=== PATIENT | female | born 1955 | race African-American/Black ===

== ENCOUNTER 2018-02-10 01:18 | Emergency (ER) | payer SELFPAY ==
[2018-02-10 01:18] VITALS: BP 141/85; PULSE 84; RESP 18; TEMP 36.5; O2SAT 99; BMI 34.4
--- NOTE | 2018-02-10 01:32 | CT_ITS ---
STUDY: CT ABDOMEN AND PELVIS WITHOUT CONTRAST REASON FOR EXAM: Female, 62 years old. Right flank pain RADIATION DOSAGE (If Supplied By Facility): CTDIvol = ( 15.28 ) mGy, DLP = ( 691.10 ) mGycm TECHNIQUE: Transaxial images were obtained from the dome of the diaphragm to the symphysis pubis without oral contrast, and without intravenous contrast. Sagittal and coronal images were reconstructed. Individualized dose optimization techniques were used for this CT. COMPARISON: None. FINDINGS: The visualized lung bases are unremarkable. The visualized portions of the heart are within normal limits. Normal liver. The gallbladder is contracted. Normal spleen. Normal pancreas. Normal bilateral adrenal glands. Multiple bilateral nonobstructing renal calculi, the largest on the left measuring 5 mm. Normal visualized stomach. Normal small intestine. There are multiple colonic diverticula consistent with diverticulosis. The appendix is visualized and appears normal. Normal abdominal aorta. Normal inferior vena cava. Normal retroperitoneum. Normal urinary bladder. Free pelvic fluid. Probable 16mm left ovary cyst. Normal abdominal wall. Normal osseous structures. CT/Abdomen/Pelvis without Cont IMPRESSION: No evidence of acute intestinal pathology or acute obstructive uropathy. Free pelvic fluid. Probable 16mm left ovary cyst. Bilateral nonobstructing renal calculi. Electronically Signed: Facundo Awad MD at 3:14 EDT Tel , Service support ,
[2018-02-10 02:04] LABS: Bacteria 0 SEEN /hpf (None Seen); Mucous, Urine 0 SEEN /hpf (<or=2+); White Blood Cells 0 SEEN /hpf (0-5)
[2018-02-10 02:06] LABS: Color, Urine Yellow (Yellow); Glucose, Dipstick Normal (Normal); Ketone-Dipstick Negative (Negative); Leukocyte Esterase-Dipstick 25 /ul (Negative); Nitrite-Dipstick Negative (Negative); Occult Blood-Urine 10 /ul (Negative); Protein-Dipstick Negative (Negative); Specific Gravity, Urine 1.015 (1.002-1.030); Urine Bilirubin Dipstick Negative (Negative); Urine Clarity Clear (Clear); Urine Urobilinogen Normal (Normal)
[2018-02-10] MEDS: Ketorolac 30 MG/ML Syringe IV (02:06)
[2018-02-10] MEDS: 0.9% Normal Saline 1,000 ML 250 ML IV (02:06)
[2018-02-10 02:20] LABS: Red Blood Cells-Urine 0-5 SEEN /hpf (0-5); Squamous Epithelial Cells - UA 0-5 SEEN /hpf (5-10)
--- NOTE | 2018-02-10 03:40 | ED.DCSUM_ITS ---
- ER Visit Summary Date of Service: 02/10/18 Chief Complaint: Right flank pain History of Present Illness: The patient is a [address] Cooper. She reports that 830 this evening she was standing in the kitchen had the abrupt onset of a right flank pain. She is taking an aching pain is 10 out of 10 severity. Is worsened by bending or stooping. She is used a heating pad without relief. She denies having had anything like this previously. However, she does have known kidney stones. She denies any radiation to her legs. No numbness or weakness in her legs. No problems with her bowels or bladder. No groin numbness. She denies any recent trauma. No fall, MVA, or change in activity. Her review of systems is negative. Physical Examination: Vitals: Stable. Afebrile. General: Well-nourished and well-developed. Head: Normocephalic atraumatic. Neck: Supple, no lymphadenopathy. No JVD. Nontender. Cardiovascular: Regular rate and rhythm. No murmurs. Respiratory: No respiratory distress. Clear to auscultation bilaterally. Abdominal: Soft, nontender, nondistended, normal bowel sounds. No guarding, rebound, or peritoneal signs. Back: Mild right CVA tenderness to palpation. No vertebral tenderness. Extremities: Nontender, no edema. Skin: Normal color, no rash. Neurologic: Alert and oriented ?3. Cranial nerves II through XII are intact. Normal strength and sensation. Psych: Normal affect. Test Results: Urinalysis is negative. CT flank shows multiple bilateral intrarenal stones and a 16 mm left ovarian cyst. There are no ureteral stones. Emergency Department Course and Treatment: Patient was treated with Toradol IV and is resting comfortably. Treatment Plan: An OARRS report was obtained and it was negative. She will be discharged with [place] and instructed to follow-up with Dr. Cooper in 3-5 days if not improving. Return to the emergency department for any worsening symptoms. Disposition: To home in improved and stable condition. Impression: 1. Back pain, acute. This note was generated with Sensicast Systemsation software. It may contain incorrect words, spelling, and punctuation that were not noted in review of the chart prior to signing ED Disposition - Plan for ED Patient: Disposition: Home or Assisted Living Chief Complaint: Back Instructions: ED Spasm Back No Trauma Prescriptions: Hydrocodone/Acetaminophen [[place] 5-325 Tablet] 1 - 2 each PO 4X/DAY PRN PRN 5 Days #20 tablet PRN Reason: Pain Referrals: Tatiana Cooper MD [Primary Care Provider] - 3-5 Days if not improving
[2018-02-10] MEDS: HYDROcodone Bitartrate/Apap 5/325 Tablet PO (04:13)
[2018-02-10 04:15] VITALS: BP 130/78; PULSE 76; RESP 14; O2SAT 98
== END 2018-02-10 04:16 | disposition home or self-care (01) ==
PROVIDERS: Emergency Provider Emergency Medicine; Family Provider Internal Medicine; PCP Internal Medicine
DX: M54.9 Dorsalgia, unspecified (principal); N83.202 Unspecified ovarian cyst, left side; Z87.442 Personal history of urinary calculi
CPT/HCPCS: 74176; 81001; 96361; 96374; 99283; J7030; A4216

== ENCOUNTER 2018-10-23 16:25 | Emergency (ER) | payer BC, SELFPAY ==
[2018-10-23 16:26] VITALS: BP 165/80; PULSE 61; RESP 15; TEMP 36.7; O2SAT 99; BMI 34.9
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
[2018-10-23 17:02] VITALS: BP 155/75; PULSE 68; RESP 18; O2SAT 99
== END 2018-10-23 17:02 | disposition home or self-care (01) ==
PROVIDERS: Emergency Provider Emergency Medicine; Family Provider Internal Medicine; PCP Internal Medicine
DX: S16.1XXA Strain of muscle, fascia and tendon at neck level, initial encounter (principal); V43.52XA Car driver injured in collision with other type car in traffic accident, initial encounter; Y93.9 Activity, unspecified; Y92.410 Unspecified street and highway as the place of occurrence of the external cause; Y99.9 Unspecified external cause status; G44.209 Tension-type headache, unspecified, not intractable; E66.9 Obesity, unspecified
CPT/HCPCS: 99282

== ENCOUNTER 2018-11-05 12:04 | Emergency (ER) | payer BC, SELFPAY ==
[2018-11-05 12:09] VITALS: BP 141/89; PULSE 73; RESP 14; TEMP 36.6; O2SAT 96; BMI 37.2
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
--- NOTE | 2018-11-05 12:25 | ED.DEP ---
ED Disposition - Plan for ED Patient: Disposition: Home or Assisted Living Chief Complaint: Hypertension Instructions: ED Hypertension Poss Referrals: Tatiana Cooper MD [Primary Care Provider] - 1-2 Weeks Additional Instructions: Log your blood pressure twice daily and follow-up your primary care physician in 1-2 weeks to go over the readings and decide if you need to be started on any blood pressure medication. At this time we do not.
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
[2018-11-05 12:45] VITALS: BP 147/77; PULSE 71; RESP 20
--- OUTSIDE RECORDS SUMMARY | 2019-01-07 11:40 | XMS RPT_ITS ---
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 [facility] REPOSITORY [facility] Imaging Services [address] [place] [address] Abdomen/Pelvis without Cont MR#: [id number] Acct: [id number] Name: KAREN MCGRAW Rep #: [id number] : 1955 F 62 From: Facundo Awad MD PCP: Gurpreet Villalobos MD Status: REG ER Study: Abdomen/Pelvis without Cont Date of Exam: 02/10/18 Exam# [id number] Ordering Dr: Jordan Bond MD STUDY: CT [...] CC: Gurpreet Villalobos MD; Jordan Bond MD Agricultural Agent: Signed ALLERGIES ALLERGIES DATE TYPE / CODE NAME / CODE REACTION SEVERITY SOURCE 11/05/2018 Drug trazodone/[id number] Other Unknown [facility] Allergy/416 4610(RXNORM) [facility] 962481(SNOM Repository ED CT) 05/31/2016 DRUG TRAZODONE ITCHING [facility] INGREDI/419 Other [place] 832367(SNOM Repository ED CT) 05/31/2016 [facility] [place] 284777(SNOM Repository ED CT) ENCOUNTERS ENCOUNTERS ADMIT/DISCHARGE ACCOUNT NUMBER ADMITTING ENCOUNTER LOCATION SOURCE CLASS 11/10/2018/11/10/19 [id number] Ambulatory [address] Repository 11/07/2018/11/10/19 [id number] Ambulatory [address] Repository 11/06/2018 [id number] Ambulatory [facility] ding:OT Repository 11/06/2018/11/06/19 [id number] Ambulatory [address] Repository 11/05/2018/11/05/19 [id number] Ambulatory [address] Repository 11/05/2018/11/06/19 [id number] Ambulatory [address] Repository 11/05/2018/11/05/19 [id number] Emergency [place] [facility] ding:ED Repository 11/04/2018/11/05/19 [id number] Ambulatory [address] Main [place] Repository 11/03/2018/11/05/19 [id number] Ambulatory [address] [place] Repository 10/31/2018 [id number] Ambulatory [facility] Other [place] Repository 10/29/2018/10/29/19 [id number] Ambulatory [address] [place] Repository 10/29/2018/10/30/19 [id number] Ambulatory [address] [place] Repository 10/23/2018/10/23/19 [id number] Emergency [place] [facility] ding:ED Repository 10/22/2018/10/22/19 [id number] Ambulatory [address] [place] Repository 10/22/2018/10/23/19 [id number] Ambulatory [address] [place] Repository 10/22/2018/10/23/19 [id number] Ambulatory [address] [place] Repository 10/22/2018/10/22/19 [id number] Ambulatory [address] [place] Repository 10/15/2018/10/15/19 [id number] Ambulatory [address] [place] Repository 10/10/2018/10/12/20 [id number] Ambulatory [address] [place] Repository 10/01/2018/10/03/20 [id number] Ambulatory [address] [place] Repository 09/30/2018/10/01/20 [id number] Ambulatory [address] [place] Repository 09/18/2018/09/19/20 [id number] Ambulatory [address] [place] Repository 07/07/2018 [id number] Ambulatory [facility] Repository 04/12/2018/04/14/20 [id number] Ambulatory [address] [place] Repository 03/27/2018 [id number] Ambulatory [facility] [place] Repository 02/13/2018/02/15/20 [id number] Ambulatory [address] [place] Repository 02/10/2018/02/11/20 [id number] Emergency [place] [facility] ding:ED Repository PAYERS PAYERS ENCOUNTER GUARANTOR PAYER SUBSCRIBER SOURCE 11/06/2018 KAREN S Primary KAREN S [place] [id number] Insurance:ANTHEMPolicy CANTLEBERRYDOB: Community [id number] [id number] Repository [address]Ekh: (330) Date:2667-54-76X[phone] () [id number], [place] [address]HQ: 11/06/2018 Secondary Insurance:SELF NOT GIVENUNK [place] PAY INSURANCEPolicy Community Number: Effective Hospital Date:2018-10-29 Repository 11/05/2018 KAREN S Primary KAREN S [place] [id number] Insurance:ANTHEMPolicy CANTLEBERRYDOB: Community RICHIE [place]: [id number] [id number] Repository [address]Uza: (330) Date:5024-55-04[place] [phone] () [id number], [place] [address]EC: 11/05/2018 Secondary Insurance:SELF NOT GIVENUNK [place] PAY INSURANCEPolicy Community Number: Effective Hospital Date:2018-11-05 Repository 10/23/2018 KAREN S Primary KAREN S [place] [id number] Insurance:ANTHEMPolicy CANTLEBERRYDOB: Community RICHIE Number: [id number] [id number] Repository [address]Gii: (330) Date:9956-10-54YU [phone] () [id number], [place] [address]TY: 10/23/2018 Secondary Insurance:SELF NOT GIVENUNK [place] PAY INSURANCEPolicy Community Number: Effective Hospital Date:2018-10-23 Repository 07/07/2018 [facility]:Workers [place]DOB: System CompensationPolicy [id number] Repository Richie Number: Effective Date: [place], [place] [address]Lrh: () 02/10/2018 KAREN Woodall Primary Insurance:SELF NOT GIVENYAMILA BRODERICKBERRY[address] [place] [address] Number: Effective [place], [place] Date:2018-02-10 [facility] [address]Jxt: ()
== END 2018-11-05 12:46 | disposition home or self-care (01) ==
LOC: ED 12:37
PROVIDERS: Emergency Provider Emergency Medicine; Family Provider Internal Medicine; PCP Internal Medicine
DX: R03.0 Elevated blood-pressure reading, without diagnosis of hypertension (principal)
CPT/HCPCS: 99284

== ENCOUNTER 2018-11-06 14:00 | Outpatient (RCR) | payer BC, SELFPAY ==
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
--- NOTE | 2018-11-11 08:05 | HP.OTFCE_ITS ---
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 pressure which is increased with all basic movements and physical exertion tasks she should avoid physical and work-based tasks until this issue is resolved. Overhead Lift: Due to blood pressure being unstable and high for most of session it is inappropriate to continue functional capacity evaluation as it increases further health related and safety concerns. An accurate understanding of Sarbjit physical ability was unable to be determined due to her uncontrolled blood pressure and further follow up is needed with her physician to resolve issues. Based on symptoms of increased vertigo and blood pressure which is increased with all basic movements and physical exertion tasks she should avoid physical and work-based tasks until this issue is resolved. Carrying: Due to blood pressure being unstable and high for most of session it i s inappropriate to continue functional capacity evaluation as it increases further health related and safety concerns. An accurate understanding of Sarbjit physical ability was unable to be determined due to her uncontrolled blood pressure and further follow up is needed with her physician to resolve issues. Based on symptoms of increased vertigo and blood pressure which is increased with all basic movements and physical exertion tasks she should avoid physical and work-based tasks until this issue is resolved. Comments: Upon completion of day one Pt. was transferred via squad to [facility] emergency room due to blood pressure. OT has rescheduled [facility] tomorrow to finish assessment but needs further medical examination prior to continuing. She was discharged with no precautions and to monitor symptoms. After walking 50 feet to front lobby at completion of day 2 her blood pressure was 186/106 HR 79. She was asked by therapist to rest prior to leaving. She previous went to emergency room for this type of blood pressure and she noted it was resolved by time of arrival and was discharged. She is working with primary care physician to resolve issue.
--- NOTE | 2018-11-11 08:16 | HP.OTFCE.D ---
FCE D/C Summary - Discharge JOSIANE PASTRANA was seen for a one time visit for an FCE on 11/05/18 and is discharged.
--- OUTSIDE RECORDS SUMMARY | 2019-01-07 05:50 | XMS RPT_ITS ---
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 waveforms. Left ovary: 3.7 x 2.9 x 2.3 cm Anechoic avascular 1.9 x 1.4 x 1.4 cm cyst (previously 1.8 x 1.6 x 1.6 cm). Septated cyst versus 2 adjacent cysts measures 3 x 2.2 x 1.8 cm (previously approximately 2.3 x 1.3 x 2.4 cm. Arterial and venous flow is present throughout the left ovary on color Doppler imaging with normal spectral waveforms. Pelvis free fluid: None. IMPRESSION: Bilateral ovarian cysts appear similar since 2014. No ovarian torsion. Subcentimeter uterine fibroid. Bone Drier: DANG Transcribe Date/Time: Oct 23 2018 3:40P Dictated by : AYLA NAM MD This examination was interpreted and the report reviewed and electronically signed by: AYLA NAM MD on Oct 23 2018 3:48PM EST [id number] CREATININE Collected: 10/15/2018 Status: F Source: DERIDDER 1:00 PM [facility] REPOSITORY TYPE CODE TESTS RESULT OUT OF REFERENCE UNITS RANGE LAB CRET 0.58-0.96 mg/dL Creatinine 0.66 LAB GFRAA eGFR- >60 Amer. LAB GFRNAA . eGFR-All Other Races >60 Result Comment: eGFR (Estimated GFR) Units of measure: mL/min/1.73 meters squared eGFR is derived from the reexpressed MDRD Study equation using the following parameters: serum creatinine, age, gender and race. The creatinine assay has been calibrated to be traceable to IDMS. An eGFR <60 mL/min/1.73m2 for >3 months is consistent with chronic kidney disease. Refer to KDOQI guidelines for clinical interpretation. In patients with unstable renal function, e.g. those with acute kidney injury, the eGFR may not accurately reflect actual GFR. Performed By: #### CRET1 #### [facility] [address] [address] PROGRESS Observed: 10/10/2018 Status: COMPLETED Source: DERIDDER 6:53 PM [facility] REPOSITORY HNO ID: [id number] Author: Janeen Whitten) [place] Service: (none) Author Type: Nurse Practitioner Type: Progress Notes Filed: 10/10/2018 8:34 PM Note Text: Subjective The history is provided by the patient. No instrument technician was used. ROWDY Mcgraw is a 63 year old female who presents today for CC of cough nasal drainage, sinus congestion. This started a week ago. She is also having yellow mucous. She denies fever. She has tried tylenol and aleve and nasal saline with short term relief. Worse when lying down at night. States feels dizzines with sinus. She denies any slurred speech, facial drooping, numbness or tingling in arms. BP 116/64 Pulse 70 Temp 36.9 ?C (98.4 ?F) (Left Tympanic) Resp 16 Wt 88.7 kg (195 lb 9.6 oz) SpO2 97% BMI 36.96 kg/m? PAST MEDICAL HISTORY Diagnosis Date - Alcoholism (HCC) - Depression - Hepatitis C I have confirmed and edited as necessary, the [facility] Review of Systems Constitutional: Negative for chills and fever. HENT: Positive for congestion, ear pain (pressure) and sinus pain. Negative for sore throat. Post nasal drainage Respiratory: Positive for cough. Musculoskeletal: Negative for myalgias. Neurological: Positive for dizziness and headaches (sinus). Objective Physical Exam Constitutional: She is well-developed, well-nourished, and in no distress. HENT: Head: Normocephalic and atraumatic. Right Ear: External ear and ear canal normal. Tympanic membrane is injected and bulging. Tympanic membrane is not erythematous and not retracted. A middle ear effusion is present. Left Ear: Ear canal normal. Tympanic membrane is injected and bulging. Tympanic membrane is not erythematous and not retracted. A middle ear effusion is present. Nose: Mucosal edema and rhinorrhea present. Right sinus exhibits maxillary sinus tenderness and frontal sinus tenderness. Left sinus exhibits maxillary sinus tenderness and frontal sinus tenderness. Mouth/Throat: Uvula is midline, oropharynx is clear and moist and mucous membranes are normal. No posterior oropharyngeal edema or posterior oropharyngeal erythema. Cardiovascular: Normal rate and regular rhythm. Pulmonary/Chest: Effort normal and breath sounds normal. She has no decreased breath sounds. She has no wheezes. She has no rhonchi. She has no rales. Lymphadenopathy: Head (right side): No submental, no submandibular and no tonsillar adenopathy present. Head (left side): No submental, no submandibular and no tonsillar adenopathy present. She has no cervical adenopathy. Neurological: She is alert. She has intact cranial nerves. No cranial nerve deficit. Skin: Skin is warm and dry. Psychiatric: Affect normal. Nursing note and vitals reviewed. ASSESSMENT/PLAN: 1. URI, acute - ICD9: 465.9, ICD10: J06.9 (primary diagnosis) - Discussed viral etiology and rationale for treatment. Rest, increase water intake Motrin or Tylenol as needed for fever or pain. Salt water gargles, chloraseptic spray or lozenges as needed for sore throat. Nasal spray as needed Cool mist humidifier at night A cold normally lasts 7-10 days. If your symptoms are lasting longer, develop fever, or worsening by that time instead of improving then return to clinic or follow up with PCP for re-evaluation. 2. Non-recurrent acute serous otitis media of left ear - ICD9: 381.01, ICD10: H65.02 - Will begin treatment with Amoxicillin for 10 days - Supportive care with plenty of fluids, rest, and analgesia prn. Sudafed 30 mg twice a day for 3-5 days Flonase 1 spray each nostril two times a day. GO TO THE ER IF: 1. You have a severe headache or pain around the ear. 2. You notice swelling around the ear. 3. You have a seizure (convulsion), twitching of the facial muscles, or passes out. 4. You are dizzy, have a stiff neck, or cannot walk or talk normally. * Seek medical care immediately, call 911, go to ER if you have chest pain, difficulty breathing, shortness of breath, inability to swallow. Diagnosis and treatment plan were discussed and questions were answered to the patient's satisfaction. Pt acknowledged understanding of concepts and follow up plan. Specific signs and symptoms that would indicate the need for higher level of care were discussed in detail warranting prompt ER evaluation. KIMBERLY Holman Observed: 10/10/2018 Status: COMPLETED Source: DERIDDER 6:30 PM [facility] REPOSITORY Office Visit (WSTR) KAREN MCGRAW ([id number]) 1955 F Date Time Provider Department 10/10/18 6:30 PM JANEEN LAUREN (EDITH) WSTR During your visit today, we recorded the following information about you: Temperature Pulse Respiration Blood pressure 98.4 degrees 70/minute 16/minute 116/64 Weight 88.7 kg Janeen Lauren APRN.CNP 10/10/2018 8:34 PM Signed Subjective The history is provided by the patient. No instrument technician was used. ROWDY Mcgraw is a 63 year old female who presents today for CC of cough nasal drainage, sinus congestion. This started a week ago. She is also having yellow mucous. She denies fever. She has tried tylenol and aleve and nasal saline with short term relief. Worse when lying down at night. States feels dizzines with sinus. She denies any slurred speech, facial drooping, numbness or tingling in arms. BP 116/64 Pulse 70 Temp 36.9 ?C (98.4 ?F) (Left Tympanic) Resp 16 Wt 88.7 kg (195 lb 9.6 oz) SpO2 97% BMI 36.96 kg/m? PAST MEDICAL HISTORY Diagnosis Date - Alcoholism (HCC) - Depression - Hepatitis C I have confirmed and edited as necessary, the [facility] Review of Systems Constitutional: Negative for chills and fever. HENT: Positive for congestion, ear pain (pressure) and sinus pain. Negative for sore throat. Post nasal drainage Respiratory: Positive for cough. Musculoskeletal: Negative for myalgias. Neurological: Positive for dizziness and headaches (sinus). Objective Physical Exam Constitutional: She is well-developed, well-nourished, and in no distress. HENT: Head: Normocephalic and atraumatic. Right Ear: External ear and ear canal normal. Tympanic membrane is injected and bulging. Tympanic membrane is not erythematous and not retracted. A middle ear effusion is present. Left Ear: Ear canal normal. Tympanic membrane is injected and bulging. Tympanic membrane is not erythematous and not retracted. A middle ear effusion is present. Nose: Mucosal edema and rhinorrhea present. Right sinus exhibits maxillary sinus tenderness and frontal sinus tenderness. Left sinus exhibits maxillary sinus tenderness and frontal sinus tenderness. Mouth/Throat: Uvula is midline, oropharynx is clear and moist and mucous membranes are normal. No posterior oropharyngeal edema or posterior oropharyngeal erythema. Cardiovascular: Normal rate and regular rhythm. Pulmonary/Chest: Effort normal and breath sounds normal. She has no decreased breath sounds. She has no wheezes. She has no rhonchi. She has no rales. Lymphadenopathy: Head (right side): No submental, no submandibular and no tonsillar adenopathy present. Head (left side): No submental, no submandibular and no tonsillar adenopathy present. She has no cervical adenopathy. Neurological: She is alert. She has intact cranial nerves. No cranial nerve deficit. Skin: Skin is warm and dry. Psychiatric: Affect normal. Nursing note and vitals reviewed. ASSESSMENT/PLAN: 1. URI, acute - ICD9: 465.9, ICD10: J06.9 (primary diagnosis) - Discussed viral etiology and rationale for treatment. Rest, increase water intake Motrin or Tylenol as needed for fever or pain. Salt water gargles, chloraseptic spray or lozenges as needed for sore throat. Nasal spray as needed Cool mist humidifier at night A cold normally lasts 7-10 days. If your symptoms are lasting longer, develop fever, or worsening by that time instead of improving then return to clinic or follow up with PCP for re-evaluation. 2. Non-recurrent acute serous otitis media of left ear - ICD9: 381.01, ICD10: H65.02 - Will begin treatment with Amoxicillin for 10 days - Supportive care with plenty of fluids, rest, and analgesia prn. Sudafed 30 mg twice a day for 3-5 days Flonase 1 spray each nostril two times a day. GO TO THE ER IF: 1. You have a severe headache or pain around the ear. 2. You notice swelling around the ear. 3. You have a seizure (convulsion), twitching of the facial muscles, or passes out. 4. You are dizzy, have a stiff neck, or cannot walk or talk normally. * Seek medical care immediately, call 911, go to ER if you have chest pain, difficulty breathing, shortness of breath, inability to swallow. Diagnosis and treatment plan were discussed and questions were answered to the patient's satisfaction. Pt acknowledged understanding of concepts and follow up plan. Specific signs and symptoms that would indicate the need for higher level of care were discussed in detail warranting prompt ER evaluation. Janeen Lauren APRN.EDITH Lauren APRN.CNP 10/10/2018 7:04 PM Addendum ASSESSMENT/PLAN: 1. URI, acute - ICD9: 465.9, ICD10: J06.9 (primary diagnosis) - Discussed viral etiology and rationale for treatment. Rest, increase water intake Motrin or Tylenol as needed for fever or pain. Salt water gargles, chloraseptic spray or lozenges as needed for sore throat. Nasal spray as needed Cool mist humidifier at night A cold normally lasts 7-10 days. If your symptoms are lasting longer, develop fever, or worsening by that time instead of improving then return to clinic or follow up with PCP for re-evaluation. 2. Non-recurrent acute serous otitis media of left ear - ICD9: 381.01, ICD10: H65.02 - Will begin treatment with Amoxicillin for 10 days - Supportive care with plenty of fluids, rest, and analgesia prn. Sudafed 30 mg twice a day for 3-5 days Flonase 1 spray each nostril two times a day. GO TO THE ER IF: 1. You have a severe headache or pain around the ear. 2. You notice swelling around the ear. 3. You have a seizure (convulsion), twitching of the facial muscles, or passes out. 4. You are dizzy, have a stiff neck, or cannot walk or talk normally. * Seek medical care immediately, call 911, go to ER if you have chest pain, difficulty breathing, shortness of breath, inability to swallow. Referring Provider: SELF [[id number]] Allergies As of Date: 10/10/2018 Noted Allergy Reaction TRAZODONE 05/31/2016 9 - Itching Comments: Severe headache Date Reviewed: 10/10/2018 Reviewed by: [facility]en [facility] [place] - Fully Assessed Reason for Visit: Sinusitis [127] Primary Visit Diagnosis:URI, acute [J06.9] Other Visit Diagnosis:Non-recurrent acute serous otitis media of left ear [H65.02] Order(s):amoxicillin (AMOXIL) 875 mg tabletTake 1 tablet by mouth twice daily for 10 days.Disp: 20 tabletRfl: 0 fluticasone (FLONASE) 50 mcg/actuation nasal sprayUse 2 Sprays in each nostril once daily. Rinse mouth after use.Disp: 1 BottleRfl: 0 Prescriptions as of 10/10/2018 Sig: VITAMIN E 400 UNIT CAPSULE Take 400 Units by mouth once * ASCORBIC ACID (VITAMIN C) 1,0* Take 2,000 mg by mouth twice * COLLAGEN PLUS VITAMIN C ORAL Take by mouth. BIOTIN ORAL Take by mouth. VITAMIN D-3 ORAL Take by mouth. CHOLECALCIFEROL (VITAMIN D3) * Take 1,000 Units by mouth onc* VITAMIN B-12 ORAL Take by mouth. MELOXICAM 7.5 MG TABLET Take 1 tablet by mouth once d* AMOXICILLIN 875 MG TABLET Take 1 tablet by mouth twice * FLUTICASONE 50 MCG/ACTUATION * Use 2 Sprays in each nostril * HYDROCORTISONE 1 % TOPICAL CR* Apply 1 application to affect* Problem List As Of Date 10/10/2018 Noted Resolved Unspecified viral hepatitis C without hepatic c*INVALID FOR* More... Lipoma of Unspecified Site [D17.9] INVALID FOR* Dizziness [R42] INVALID FOR* More... Obesity (BMI 30-39.9) [E66.9] INVALID FOR* More... SUMMARY [V999.95] INVALID FOR* More... Other instructions from your clinician: ASSESSMENT/PLAN: 1. URI, acute - ICD9: 465.9, ICD10: J06.9 (primary diagnosis) - Discussed viral etiology and rationale for treatment. Rest, increase water intake Motrin or Tylenol as needed for fever or pain. Salt water gargles, chloraseptic spray or lozenges as needed for sore throat. Nasal spray as needed Cool mist humidifier at night A cold normally lasts 7-10 days. If your symptoms are lasting longer, develop fever, or worsening by that time instead of improving then return to clinic or follow up with PCP for re-evaluation. 2. Non-recurrent acute serous otitis media of left ear - ICD9: 381.01, ICD10: H65.02 - Will begin treatment with Amoxicillin for 10 days - Supportive care with plenty of fluids, rest, and analgesia prn. Sudafed 30 mg twice a day for 3-5 days Flonase 1 spray each nostril two times a day. GO TO THE ER IF: 1. You have a severe headache or pain around the ear. 2. You notice swelling around the ear. 3. You have a seizure (convulsion), twitching of the facial muscles, or passes out. 4. You are dizzy, have a stiff neck, or cannot walk or talk normally. * Seek medical care immediately, call 911, go to ER if you have chest pain, difficulty breathing, shortness of breath, inability to swallow. Prescriptions ordered this encounter Disp Refills Start End AMOXICILLIN 875 MG TABLET 20 t* 0 10/10/2018 10/20/2018 Route: ORAL Sig: Take 1 tablet by mouth twice daily for 10 days. FLUTICASONE 50 MCG/ACTUATION NASAL S* 1 Denny* 0 10/10/2018 Route: EACH NOSTRIL Sig: Use 2 Sprays in each nostril once daily. Rinse mouth after use. Medications Discontinued During This Encounter methylPREDNISolone (MEDROL DOSE-PACK* 1 Pa* 0 09/18/2018 10/10/2018 Sig: As Instructed per package Patient not taking: Reported on 10/10/2018 Disc: Course of therapy completed Encounter Status:Closed by JANEEN LAUREN CNP on 10/10/18 PROGRESS Observed: 09/30/2018 Status: COMPLETED Source: DERIDDER 3:51 PM [facility] [place] REPOSITORY O ID: [id number] Author: Suly (Edith) Older Service: (none) Author Type: Nurse Practitioner Type: Progress Notes Filed: 09/30/2018 4:26 PM Note Text: CC: Patient presents with: left calf pain: x 24 hours HPI Karen Mcgraw is a 63 year old female who presents today for left calf pain since yesterday. Initially stated it was localized to left calf but also reports starts in the left buttock and radiates down to her foot. Constant burning, throbbing and pulling pain. Rated 6 to 7 out of 10. Aggravated by walking and standing. Possible calf swelling but unsure. Also reports left treat toe tingling/stabbing pain, having trouble walking because of this. No chest pain, SOB, heart palpitations. No fever, chills. No recent injury or falling. No low back pain. Was evaluated last week for left groin pain, see office note in EPIC. Still having left groin pain but does not feel that this is related. REVIEW OF SYSTEMS See HPI PAST MEDICAL HISTORY Diagnosis Date - Alcoholism (HCC) - Depression - Hepatitis C PAST SURGICAL HISTORY Procedure Laterality Date - COLONOSCOP W/ OR W/O [facility] SPEC 01/11/2014 Colonoscopy - LIVER BIOPSY in and 2002 - REMOVAL ADENOIDS,PRIMARY,<12 Y/O Adenoidectomy - REMOVAL OF TONSILS,<12 Y/O Tonsillectomy ALLERGIES Trazodone MEDICATIONS alpha tocopheryl acetate (VITAMIN E) 400 unit capsule Take 400 Units by mouth once daily. Ascorbic Acid (VITAMIN C) 1,000 mg tablet Take 2,000 mg by mouth twice daily. ascorbic acid/collagen hydr (COLLAGEN PLUS VITAMIN C ORAL) Take by mouth. BIOTIN ORAL Take by mouth. CALCIUM CARBONATE/VITAMIN D3 (VITAMIN D-3 ORAL) Take by mouth. cholecalciferol (VITAMIN D) 1,000 unit tab tablet Take 1,000 Units by mouth once daily. CYANOCOBALAMIN, VITAMIN B-12, (VITAMIN B-12 ORAL) Take by mouth. hydrocortisone (ANTI-ITCH, HC,) 1 % cream Apply 1 application to affected area twice daily. meloxicam (MOBIC) 7.5 mg tablet Take 1 tablet by mouth once daily. for pain. Take with food. methylPREDNISolone (MEDROL DOSE-PACK) 4 mg Dose-Pack As Instructed per package FAMILY HISTORY Problem Relation Age of Onset - Cancer Mother ovarian - Heart Mother cad - Cancer Sister ovarian - Psychiatry Sister bipolar - Psychiatry Brother bipolar Social History Substance Use Topics - Smoking status: Former Smoker - Smokeless tobacco: Never Used - Alcohol use No PHYSICAL EXAM BP 150/90 Pulse 80 Temp 37 ?C (98.6 ?F) (Temporal Artery) Resp 16 Wt 85.7 kg (189 lb) SpO2 96% BMI 35.71 kg/m? General Appearance: well appearing, in no acute distress, alert Back: No pain to palpation, Full and painless ROM including flexion, extension, lateral side bending and rotation, Reflexes 2+ and symmetric. Muscle strength 5/5 bilaterally. Lungs: lungs clear to auscultation. No wheezing, rhonchi, rales Heart: RRR without murmur, gallop, or rubs. No ectopy Lower Extremities: entire left lower leg tender with palpation. Left calf measures 15.75 inches and right calf measures 15 inches. No obvious edema. No deformities, skin discoloration, clubbing or cyanosis. Good capillary refill. Pulses: 2+, No cords. Modified Wells Rule for DVT (1pt each) - active cancer (tx or palliation in last 6mo)= 0 - paralysis, paresis or recent leg casting= 0 - bedridden >3D/major surgery w/in 4 wks= 0 - localized tenderness along deep venous system= 1 - entire ext swollen= 0 - unilateral calf swelling >3cm below Tibial tuberosity= 0 - unilateral pitting edema= 0 - prominent non-varicose collateral superficial veins= 0 Score -2 if alt dx as likely as DVT= -2 Score Total: -1 Pretest probabilty: High >= 3, Intermediate 1-2, Low 0 ASSESSMENT/PLAN: 1. Pain of left calf - ICD9: 729.5, ICD10: M79.662 (primary diagnosis) Differential diagnoses includes sciatica and DVT. Discussed with patient - Check stat US LEG VEIN DVT [facility] - Follow-up pending results of work-up 2. Edema of left lower extremity - ICD9: 782.3, ICD10: R60.0 As above - US LEG VEIN DVT [facility] Prescription instructions reviewed with patient as applicable. Potential red flag symptoms discussed with the patient. Reviewed appropriate action plan to take if red flag symptoms occur. Patient agreeable to treatment plan. Suly Balderas APRN.CNP CNOV Observed: 09/30/2018 Status: COMPLETED Source: DERIDDER 3:40 PM [facility] REPOSITORY Office Visit (INTMWS) KAREN MCGRAW ([id number]) 1955 F Date Time Provider Department 09/30/18 3:40 PM SULY BALDERAS (EDITH) INTMWS During your visit today, we recorded the following information about you: Temperature Pulse Respiration Blood pressure 98.6 degrees 80/minute 16/minute 150/90 Weight 85.7 kg Suly Balderas APRN.CNP 09/30/2018 4:26 PM Signed CC: Patient presents with: left calf pain: x 24 hours HPI Karen Mcgraw is a 63 year old female who presents today for left calf pain since yesterday. Initially stated it was localized to left calf but also reports starts in the left buttock and radiates down to her foot. Constant burning, throbbing and pulling pain. Rated 6 to 7 out of 10. Aggravated by walking and standing. Possible calf swelling but unsure. Also reports left treat toe tingling/stabbing pain, having trouble walking because of this. No chest pain, SOB, heart palpitations. No fever, chills. No recent injury or falling. No low back pain. Was evaluated last week for left groin pain, see office note in EPIC. Still having left groin pain but does not feel that this is related. REVIEW OF SYSTEMS See HPI PAST MEDICAL HISTORY Diagnosis Date - Alcoholism (HCC) - Depression - Hepatitis C PAST SURGICAL HISTORY Procedure Laterality Date - COLONOSCOP W/ OR W/O [facility] SPEC 01/11/2014 Colonoscopy - LIVER BIOPSY in and 2002 - REMOVAL ADENOIDS,PRIMARY,<12 Y/O Adenoidectomy - REMOVAL OF TONSILS,<12 Y/O Tonsillectomy ALLERGIES Trazodone MEDICATIONS alpha tocopheryl acetate (VITAMIN E) 400 unit capsule Take 400 Units by mouth once daily. Ascorbic Acid (VITAMIN C) 1,000 mg tablet Take 2,000 mg by mouth twice daily. ascorbic acid/collagen hydr (COLLAGEN PLUS VITAMIN C ORAL) Take by mouth. BIOTIN ORAL Take by mouth. CALCIUM CARBONATE/VITAMIN D3 (VITAMIN D-3 ORAL) Take by mouth. cholecalciferol (VITAMIN D) 1,000 unit tab tablet Take 1,000 Units by mouth once daily. CYANOCOBALAMIN, VITAMIN B-12, (VITAMIN B-12 ORAL) Take by mouth. hydrocortisone (ANTI-ITCH, HC,) 1 % cream Apply 1 application to affected area twice daily. meloxicam (MOBIC) 7.5 mg tablet Take 1 tablet by mouth once daily. for pain. Take with food. methylPREDNISolone (MEDROL DOSE-PACK) 4 mg Dose-Pack As Instructed per package FAMILY HISTORY Problem Relation Age of Onset - Cancer Mother ovarian - Heart Mother cad - Cancer Sister ovarian - Psychiatry Sister bipolar - Psychiatry Brother bipolar Social History Substance Use Topics - Smoking status: Former Smoker - Smokeless tobacco: Never Used - Alcohol use No PHYSICAL EXAM BP 150/90 Pulse 80 Temp 37 ?C (98.6 ?F) (Temporal Artery) Resp 16 Wt 85.7 kg (189 lb) SpO2 96% BMI 35.71 kg/m? General Appearance: well appearing, in no acute distress, alert Back: No pain to palpation, Full and painless ROM including flexion, extension, lateral side bending and rotation, Reflexes 2+ and symmetric. Muscle strength 5/5 bilaterally. Lungs: lungs clear to auscultation. No wheezing, rhonchi, rales Heart: RRR without murmur, gallop, or rubs. No ectopy Lower Extremities: entire left lower leg tender with palpation. Left calf measures 15.75 inches and right calf measures 15 inches. No obvious edema. No deformities, skin discoloration, clubbing or cyanosis. Good capillary refill. Pulses: 2+, No cords. Modified Wells Rule for DVT (1pt each) - active cancer (tx or palliation in last 6mo)= 0 - paralysis, paresis or recent leg casting= 0 - bedridden >3D/major surgery w/in 4 wks= 0 - localized tenderness along deep venous system= 1 - entire ext swollen= 0 - unilateral calf swelling >3cm below Tibial tuberosity= 0 - unilateral pitting edema= 0 - prominent non-varicose collateral superficial veins= 0 Score -2 if alt dx as likely as DVT= -2 Score Total: -1 Pretest probabilty: High >= 3, Intermediate 1-2, Low 0 ASSESSMENT/PLAN: 1. Pain of left calf - ICD9: 729.5, ICD10: M79.662 (primary diagnosis) Differential diagnoses includes sciatica and DVT. Discussed with patient - Check stat US LEG VEIN DVT UNL VAS LAB - Follow-up pending results of work-up 2. Edema of left lower extremity - ICD9: 782.3, ICD10: R60.0 As above - US LEG VEIN DVT UNL VAS LAB Prescription instructions reviewed with patient as applicable. Potential red flag symptoms discussed with the patient. Reviewed appropriate action plan to take if red flag symptoms occur. Patient agreeable to treatment plan. Suly Balderas APRN.INFECTION CONTROL PREVENTIONIST Referring Provider: SELF [[id number]] Allergies As of Date: 09/30/2018 Noted Allergy Reaction TRAZODONE 05/31/2016 9 - Itching Comments: Severe headache Date Reviewed: 09/30/2018 Reviewed by: Malathi Holly Senior Qa Analyst - Fully Assessed Reason for Visit: left calf pain [Other] Cmt: x 24 hours Primary Visit Diagnosis:Pain of left calf [M79.662] Other Visit Diagnosis:Edema of left lower extremity [R60.0] Order(s):US LEG VEIN DVT UNL VAS LAB [[id number]] Order #: [id number] FUTURE Prescriptions as of 09/30/2018 Sig: VITAMIN E 400 UNIT CAPSULE Take 400 Units by mouth once * ASCORBIC ACID (VITAMIN C) 1,0* Take 2,000 mg by mouth twice * COLLAGEN PLUS VITAMIN C ORAL Take by mouth. BIOTIN ORAL Take by mouth. VITAMIN D-3 ORAL Take by mouth. CHOLECALCIFEROL (VITAMIN D3) * Take 1,000 Units by mouth onc* VITAMIN B-12 ORAL Take by mouth. HYDROCORTISONE 1 % TOPICAL CR* Apply 1 application to affect* MELOXICAM 7.5 MG TABLET Take 1 tablet by mouth once d* METHYLPREDNISOLONE 4 MG TABLE* As Instructed per package Problem List As Of Date 09/30/2018 Noted Resolved Unspecified viral hepatitis C without hepatic c*INVALID FOR* More... Lipoma of Unspecified Site [D17.9] INVALID FOR* Dizziness [R42] INVALID FOR* More... Obesity (BMI 30-39.9) [E66.9] INVALID FOR* More... SUMMARY [V999.95] INVALID FOR* More... Follow-up and Disposition History Recorded Encounter Status:Closed by SULY BALDERAS CNP on 09/30/18 PROGRESS Observed: 09/18/2018 Status: COMPLETED Source: [place] 10:27 AM [facility] REPOSITORY HNO ID: [id number] Author: Carmelo Cooper Service: (none) Author Type: Nurse Practitioner Type: Progress Notes Filed: 09/18/2018 12:59 PM Note Text: CC: Patient presents with: work injury HPI Karen Mcgraw is a 63 year old female who presents today for continued left groin pain following work injury. Patient reports previous injury to left groin/hip in January 2018. 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 She states as this occurred she heard a pop and later experienced pain. She indicates that she believed the pain would get better in time, but persisted. She had work up completed in June 2018 where she was put on light duty. She has since followed up with a physician through her work with previous xrays, imaging not available at the time of her visit, and was released for duty. However she reports as she as returned to her previous work the pain has increased to the left groin and thigh, she has developed new numbness/tingling and weakness of the leg. She states the pain is 10/10 and described as a burning, stinging and pulling pain. ROM is limited and she isn't able to perform all of her job related duties as before. She takes Tylenol and Aleve for temporary relief. She denies any new injury or falls. She denies any saddle paraesthesias or bowel or bladder incontinence. She does note some abdominal bloating to the point she can't button her jeans anymore. She was also expected to complete an MRI of the left breast/axilla following suspicious finding with her mammogram earlier this year. Patient indicates she has been unable to make her appointment d/t her work schedule. While reviewing previous back imaging studies, patient complete lumbar MRI 08/2017 which showed some abnormalities of the left adnexa with suggested US follow up. Patient has not undergone follow up at this point. REVIEW OF SYSTEMS General: no fevers, no chills, no night sweats, no recurrent infections, no change in appetite, no change in energy and no significant changes in weight Respiratory: no cough, no wheezing, no shortness of breath, no hemoptysis Cardiovascular: no chest pain, no chest pressure, no palpitations and no swelling GI: No nausea, vomiting, or diarrhea : No history of dysuria, frequency or incontinence Musculoskeletal: Denies back pain, joint swelling or erythema. Reports left groin pain as above Neurologic: No headache, weakness, numbness, tingling, neck stiffness, tremor, vertigo, dizziness, memory loss, syncope. PAST MEDICAL HISTORY Diagnosis Date - Alcoholism (HCC) - Depression - Hepatitis C PAST SURGICAL HISTORY Procedure Laterality Date - COLONOSCOP W/ OR W/O [facility] SPEC 01/11/2014 Colonoscopy - LIVER BIOPSY in and 2002 - REMOVAL ADENOIDS,PRIMARY,<12 Y/O Adenoidectomy - REMOVAL OF TONSILS,<12 Y/O Tonsillectomy ALLERGIES Trazodone MEDICATIONS BIOTIN ORAL Take by mouth. cholecalciferol (VITAMIN D) 1,000 unit tab tablet Take 1,000 Units by mouth once daily. alpha tocopheryl acetate (VITAMIN E) 400 unit capsule Take 400 Units by mouth once daily. CALCIUM CARBONATE/VITAMIN D3 (VITAMIN D-3 ORAL) Take by mouth. CYANOCOBALAMIN, VITAMIN B-12, (VITAMIN B-12 ORAL) Take by mouth. Ascorbic Acid (VITAMIN C) 1,000 mg tablet Take 2,000 mg by mouth twice daily. ascorbic acid/collagen hydr (COLLAGEN PLUS VITAMIN C ORAL) Take by mouth. hydrocortisone (ANTI-ITCH, HC,) 1 % cream Apply 1 application to affected area twice daily. FAMILY HISTORY Problem Relation Age of Onset - Cancer Mother ovarian - Heart Mother cad - Cancer Sister ovarian - Psychiatry Sister bipolar - Psychiatry Brother bipolar Social History Substance Use Topics - Smoking status: Former Smoker - Smokeless tobacco: Never Used - Alcohol use No PHYSICAL EXAM BP 140/86 Pulse 84 Resp 20 Wt 85.3 kg (188 lb) BMI 35.52 kg/m? General Appearance: well appearing, in no acute distress, alert Pysch: mood and affect broad and appropriate Skin: Skin color, texture, turgor normal for age; Head: normocephalic, atraumatic Eyes: conjunctiva pink and moist, no icterus, sclera white, non-injected Lungs: lungs clear to auscultation. No wheezing, rhonchi, rales Heart: RRR without murmur, gallop, or rubs. No ectopy Abdomen: soft, distended, nontender, no hepatosplenomegaly or masses Bilateral Lower Extremities: No deformities, edema, skin discoloration, clubbing or cyanosis. Good capillary refill. , Pulses: 2+ Musculoskeletal: Left hip: No joint deformity or edema mild tenderness over left vastus lateralis and left groin- no palpable lymph nodes, +muscle spasm noted unclear if voluntary or involuntary with exam 30 degree- 0 degree flexion/extension Unable to assess internal and external rotation d/t pain Negative straight leg raise Positive distal pulses Negative Bret's, calf tenderness or palpable cords MAMMOGRAM due on 11/23/2017 INFLUENZA(1) due on 06/14/2018 PAP EVERY 5 YEARS due on 12/30/2018 HPV EVERY 5 YEARS due on 12/30/2018 COLORECTAL CANCER SCREENING,SEE MODIFIER due on 01/11/2019 DIABETES SCREEN due on 03/27/2021 LIPID SCREEN due on 05/07/2022 DTAP,TDAP,TD(2 - Td) due on 07/25/2025 HEPATITIS C SCREENING Completed ASSESSMENT/PLAN: 1. Left groin pain - ICD9: 789.09, ICD10: R10.32 (primary diagnosis) - Work up with MRI given worsening symptoms over 6 months - Follow up in 2 weeks or sooner if worsening of symptoms - METHYLPREDNISOLONE 4 MG TABLETS IN A DOSE PACK - PHYSICAL PERFORMANCE TEST - CONSULT TO PHYSICAL THERAPY - MRI HIP WO/W IVCON LT 2. Weakness of left leg - ICD9: 729.89, ICD10: R29.898 - METHYLPREDNISOLONE 4 MG TABLETS IN A DOSE PACK - PHYSICAL PERFORMANCE TEST - CONSULT TO PHYSICAL THERAPY - MRI HIP WO/W IVCON LT 3. Pain of left hip joint - ICD9: 719.45, ICD10: M25.552 - MRI HIP WO/W IVCON LT 4. Numbness and tingling of left leg - ICD9: 782.0, ICD10: R20.0, R20.2 - METHYLPREDNISOLONE 4 MG TABLETS IN A DOSE PACK - MELOXICAM 7.5 MG TABLET - MRI HIP WO/W IVCON LT 5. Abnormal MRI - ICD9: 793.99, ICD10: R93.89 - Incidental finding of lumbar MRI 08/2017 revealed abnormal cystic-like structure of the left adnexal region and possible hemorraghic cystic-like structure of the right ovary, needs follow up with US - US FEMALE PELVIS TRANSVAG Carmelo Cooper APRN.EDITH Discussed importance of completing breast/axilla imaging for follow up of enlarged lymph node. Patient verbalizes understanding and agrees to have this completed with other imaging ordered today. Work excuse provided, per patient request, until she is able to have additional imaging and functional capacity testing completed. Prescription instructions reviewed with patient as applicable. Potential red flag symptoms discussed with the patient. Reviewed appropriate action plan to take if red flag symptoms occur. Patient agreeable to treatment plan. CNOV Observed: 09/18/2018 Status: COMPLETED Source: [place] 10:00 AM [facility] REPOSITORY Office Visit (INTMWS) KAREN MCGRAW ([id number]) 1955 F Date Time Provider Department 09/18/18 10:00 AM CARMELO COOPER (EDITH) INTMWS During your visit today, we recorded the following information about you: Pulse Respiration Blood pressure Weight 84/minute 20/minute 140/86 85.3 kg Carmelo Cooper APRN.CNP 09/18/2018 12:59 PM Signed CC: Patient presents with: work injury HPI Karen Mcgraw is a 63 year old female who presents today for continued left groin pain following work injury. Patient reports previous injury to left groin/hip in January 2018. 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 She states as this occurred she heard a pop and later experienced pain. She indicates that she believed the pain would get better in time, but persisted. She had work up completed in June 2018 where she was put on light duty. She has since followed up with a physician through her work with previous xrays, imaging not available at the time of her visit, and was released for duty. However she reports as she as returned to her previous work the pain has increased to the left groin and thigh, she has developed new numbness/tingling and weakness of the leg. She states the pain is 10/10 and described as a burning, stinging and pulling pain. ROM is limited and she isn't able to perform all of her job related duties as before. She takes Tylenol and Aleve for temporary relief. She denies any new injury or falls. She denies any saddle paraesthesias or bowel or bladder incontinence. She does note some abdominal bloating to the point she can't button her jeans anymore. She was also expected to complete an MRI of the left breast/axilla following suspicious finding with her mammogram earlier this year. Patient indicates she has been unable to make her appointment d/t her work schedule. While reviewing previous back imaging studies, patient complete lumbar MRI 08/2017 which showed some abnormalities of the left adnexa with suggested US follow up. Patient has not undergone follow up at this point. REVIEW OF SYSTEMS General: no fevers, no chills, no night sweats, no recurrent infections, no change in appetite, no change in energy and no significant changes in weight Respiratory: no cough, no wheezing, no shortness of breath, no hemoptysis Cardiovascular: no chest pain, no chest pressure, no palpitations and no swelling GI: No nausea, vomiting, or diarrhea : No history of dysuria, frequency or incontinence Musculoskeletal: Denies back pain, joint swelling or erythema. Reports left groin pain as above Neurologic: No headache, weakness, numbness, tingling, neck stiffness, tremor, vertigo, dizziness, memory loss, syncope. PAST MEDICAL HISTORY Diagnosis Date - Alcoholism (HCC) - Depression - Hepatitis C PAST SURGICAL HISTORY Procedure Laterality Date - COLONOSCOP W/ OR W/O [facility] SPEC 01/11/2014 Colonoscopy - LIVER BIOPSY in and 2002 - REMOVAL ADENOIDS,PRIMARY,<12 Y/O Adenoidectomy - REMOVAL OF TONSILS,<12 Y/O Tonsillectomy ALLERGIES Trazodone MEDICATIONS BIOTIN ORAL Take by mouth. cholecalciferol (VITAMIN D) 1,000 unit tab tablet Take 1,000 Units by mouth once daily. alpha tocopheryl acetate (VITAMIN E) 400 unit capsule Take 400 Units by mouth once daily. CALCIUM CARBONATE/VITAMIN D3 (VITAMIN D-3 ORAL) Take by mouth. CYANOCOBALAMIN, VITAMIN B-12, (VITAMIN B-12 ORAL) Take by mouth. Ascorbic Acid (VITAMIN C) 1,000 mg tablet Take 2,000 mg by mouth twice daily. ascorbic acid/collagen hydr (COLLAGEN PLUS VITAMIN C ORAL) Take by mouth. hydrocortisone (ANTI-ITCH, HC,) 1 % cream Apply 1 application to affected area twice daily. FAMILY HISTORY Problem Relation Age of Onset - Cancer Mother ovarian - Heart Mother cad - Cancer Sister ovarian - Psychiatry Sister bipolar - Psychiatry Brother bipolar Social History Substance Use Topics - Smoking status: Former Smoker - Smokeless tobacco: Never Used - Alcohol use No PHYSICAL EXAM BP 140/86 Pulse 84 Resp 20 Wt 85.3 kg (188 lb) BMI 35.52 kg/m? General Appearance: well appearing, in no acute distress, alert Pysch: mood and affect broad and appropriate Skin: Skin color, texture, turgor normal for age; Head: normocephalic, atraumatic Eyes: conjunctiva pink and moist, no icterus, sclera white, non-injected Lungs: lungs clear to auscultation. No wheezing, rhonchi, rales Heart: RRR without murmur, gallop, or rubs. No ectopy Abdomen: soft, distended, nontender, no hepatosplenomegaly or masses Bilateral Lower Extremities: No deformities, edema, skin discoloration, clubbing or cyanosis. Good capillary refill. , Pulses: 2+ Musculoskeletal: Left hip: No joint deformity or edema mild tenderness over left vastus lateralis and left groin- no palpable lymph nodes, +muscle spasm noted unclear if voluntary or involuntary with exam 30 degree- 0 degree flexion/extension Unable to assess internal and external rotation d/t pain Negative straight leg raise Positive distal pulses Negative Bret's, calf tenderness or palpable cords MAMMOGRAM due on 11/23/2017 INFLUENZA(1) due on 06/14/2018 PAP EVERY 5 YEARS due on 12/30/2018 HPV EVERY 5 YEARS due on 12/30/2018 COLORECTAL CANCER SCREENING,SEE MODIFIER due on 01/11/2019 DIABETES SCREEN due on 03/27/2021 LIPID SCREEN due on 05/07/2022 DTAP,TDAP,TD(2 - Td) due on 07/25/2025 HEPATITIS C SCREENING Completed ASSESSMENT/PLAN: 1. Left groin pain - ICD9: 789.09, ICD10: R10.32 (primary diagnosis) - Work up with MRI given worsening symptoms over 6 months - Follow up in 2 weeks or sooner if worsening of symptoms - METHYLPREDNISOLONE 4 MG TABLETS IN A DOSE PACK - PHYSICAL PERFORMANCE TEST - CONSULT TO PHYSICAL THERAPY - MRI HIP WO/W IVCON LT 2. Weakness of left leg - ICD9: 729.89, ICD10: R29.898 - METHYLPREDNISOLONE 4 MG TABLETS IN A DOSE PACK - PHYSICAL PERFORMANCE TEST - CONSULT TO PHYSICAL THERAPY - MRI HIP WO/W IVCON LT 3. Pain of left hip joint - ICD9: 719.45, ICD10: M25.552 - MRI HIP WO/W IVCON LT 4. Numbness and tingling of left leg - ICD9: 782.0, ICD10: R20.0, R20.2 - METHYLPREDNISOLONE 4 MG TABLETS IN A DOSE PACK - MELOXICAM 7.5 MG TABLET - MRI HIP WO/W IVCON LT 5. Abnormal MRI - ICD9: 793.99, ICD10: R93.89 - Incidental finding of lumbar MRI 08/2017 revealed abnormal cystic-like structure of the left adnexal region and possible hemorraghic cystic-like structure of the right ovary, needs follow up with US - US FEMALE PELVIS TRANSVAG Carmelo Cooper APRN.INFECTION CONTROL PREVENTIONIST Discussed importance of completing breast/axilla imaging for follow up of enlarged lymph node. Patient verbalizes understanding and agrees to have this completed with other imaging ordered today. Work excuse provided, per patient request, until she is able to have additional imaging and functional capacity testing completed. Prescription instructions reviewed with patient as applicable. Potential red flag symptoms discussed with the patient. Reviewed appropriate action plan to take if red flag symptoms occur. Patient agreeable to treatment plan. Referring Provider: GURPREET VILLALOBOS [[id number]] Allergies As of Date: 09/18/2018 Noted Allergy Reaction TRAZODONE 05/31/2016 9 - Itching Comments: Severe headache Date Reviewed: 09/18/2018 Reviewed by: Qing Boswell LPN - Fully Assessed Reason for Visit: work injury [Other] Reason For Visit History Recorded Primary Visit Diagnosis:Left groin pain [R10.32] Other Visit Diagnoses:Weakness of left leg [R29.898] Pain of left hip joint [M25.552] Numbness and tingling of left leg [R20.0, R20.2] Abnormal MRI [R93.89] Order(s):methylPREDNISolone (MEDROL DOSE-PACK) 4 mg Dose-PackAs Instructed per packageDisp: 1 PackageRfl: 0 PHYSICAL PERFORMANCE TEST [[id number]] Order #: [id number] FEMALE PELVIS TRANSVAG [[id number]] Order #: [id number] FUTURE CONSULT TO PHYSICAL THERAPY [9032] Order #: [id number]: 1 meloxicam (MOBIC) 7.5 mg tabletTake 1 tablet by mouth once daily. for pain. Take with food.Disp: 30 tabletRfl: 0 MRI HIP WO/W IVCON LT [[id number]] Order #: [id number] FUTURE iv contrast (will be provided with radiology test)MRI hip/pelvis LTInject, intravenously, once for 1 dose. No IV access, insert saline lock prior to the beginning of sedation, infusion, injection of imaging exam. Discontinue saline lock post exam. If Pt. has a central line or IVAD, may access for administration according to line specific nursing protocol. Once exam is complete flush line and de-access according to line specific nursing protocol in the MR contrast administration guidelines linkDisp: 1 EachRfl: 0 Prescriptions as of 09/18/2018 Sig: BIOTIN ORAL Take by mouth. CHOLECALCIFEROL (VITAMIN D3) * Take 1,000 Units by mouth onc* VITAMIN E 400 UNIT CAPSULE Take 400 Units by mouth once * VITAMIN D-3 ORAL Take by mouth. VITAMIN B-12 ORAL Take by mouth. ASCORBIC ACID (VITAMIN C) 1,0* Take 2,000 mg by mouth twice * METHYLPREDNISOLONE 4 MG TABLE* As Instructed per package MELOXICAM 7.5 MG TABLET Take 1 tablet by mouth once d* IV CONTRAST (RADIOLOGY PROCED* MRI hip/pelvis LTInject, intr* COLLAGEN PLUS VITAMIN C ORAL Take by mouth. HYDROCORTISONE 1 % TOPICAL CR* Apply 1 application to affect* Patient not taking: Reported on 09/18/2018 Problem List As Of Date 09/18/2018 Noted Resolved Unspecified viral hepatitis C without hepatic c*INVALID FOR* More... Lipoma of Unspecified Site [D17.9] INVALID FOR* Dizziness [R42] INVALID FOR* More... Obesity (BMI 30-39.9) [E66.9] INVALID FOR* More... SUMMARY [V999.95] INVALID FOR* More... Prescriptions ordered this encounter Disp Refills Start End METHYLPREDNISOLONE 4 MG TABLETS IN A* 1 Pa* 0 09/18/2018 Sig: As Instructed per package MELOXICAM 7.5 MG TABLET 30 t* 0 09/18/2018 Route: ORAL Sig: Take 1 tablet by mouth once daily. for pain. Take with food. IV CONTRAST (RADIOLOGY PROCEDURE) 1 Ea* 0 09/18/2018 09/19/2018 Class: In Office Sig: MRI hip/pelvis LTInject, intravenously, once for 1 dose. No IV access, insert saline lock prior to the beginning of sedation, infusion, injection of imaging exam. Discontinue saline lock post exam. If Pt. has a central line or IVAD, may access for administration according to line specific nursing protocol. Once exam is complete flush line and de-access according to line specific nursing protocol in the MR contrast administration guidelines link Letter Text Department of Internal Medicine [address] [address] 09/18/2018 Karen Mcgraw CC# [id number] [address] [place] [address] TO WHOM IT MAY CONCERN: This is to certify that Ms. Karen Mcgraw has been under my care for injury and was unable to work from 09/17/18 through 10/02/18 until imaging and functional capacity testing is complete. Sincerely yours, Carmelo Cooper APRN.CNP Encounter Status:Closed by CARMELO COOPER CNP on 09/18/18 CR PELVIS 1 OR 2 Observed: 07/07/2018 Status: F Source: [employer] 2:45 PM SYSTEM REPOSITORY Patient Name: KAREN MCGRAW Diagnostic Radiology Exam Date/Time 07/07/2018 14:30:57 EDT Exam CR Pelvis 1 or 2 Views Ordering Physician MARES DO, MARTIN Accession Number [id number] CPT4 Codes 77997 () Reason For Exam right groin abdominal strain Report Examination: AP pelvis one view Indication: right groin abdominal strain Findings: No acute fracture or dislocation is noted. There are small osteophytes of the bilateral acetabula. There is degenerative disc disease of the visualized lower lumbar spine with tiny endplate osteophytes. The sacroiliac joints are grossly unremarkable. The soft tissues are grossly unremarkable. Impression: No acute osseous abnormality. Report Dictated on Final Dictating Physician: MD HICKS KRIKOR Signed Date and Time: 07/07/2018 2:45 pm Signed by: MD HICKS KRIKOR Transcribed Date and Time: 07/07/2018 2:46 PROGRESS Observed: 04/12/2018 Status: COMPLETED Source: [place] 10:09 AM [facility] REPOSITORY O ID: [id number] Author: Gurpreet Villalobos Service: (none) Author Type: Physician Type: Progress Notes Filed: 04/12/2018 12:46 PM Note Text: Reason for Visit Patient presents with: Recheck: labs and lymph nodes under arms Karen Mcgraw is a 63 year old female who presents here today for Above Complaints.. Health Maintenance ZOSTER VACCINE (SHINGRIX)(1 of 2) MAMMOGRAM HPI She had disability form that she needs filled for 02/09/2018 till 02/20 for inability to work and from 02/20/2018 to 03/31/2018 restricted ability to work, restriction was for lifting weights More than 5 pounds. Currently able to work, her right muscle spasms have resolved and her back sprain has resolved. She needs to have an MRI of the breast to investigate her lymph nodes. She has been putting this off for the past 6 months. But she notes that when she does physical work, her right arm starts hurting her a lot. No problem-specific Assessment AND Plan notes found for this encounter. PAST MEDICAL HISTORY Diagnosis Date - Alcoholism (HCC) - Depression - Hepatitis C PAST SURGICAL HISTORY Procedure Laterality Date - COLONOSCOP W/ OR W/O [facility] SPEC 01/11/2014 Colonoscopy - LIVER BIOPSY in and 2002 - REMOVAL ADENOIDS,PRIMARY,<12 Y/O Adenoidectomy - REMOVAL OF TONSILS,<12 Y/O Tonsillectomy FAMILY HISTORY Problem Relation Age of Onset - Cancer Mother ovarian - Heart Mother cad - Cancer Sister ovarian - Psychiatry Sister bipolar - Psychiatry Brother bipolar Social History Substance Use Topics - Smoking status: Former Smoker - Smokeless tobacco: Never Used - Alcohol use No Past medical history, appointments, medications, allergies reviewed. Pertinent Lab/Diagnostic Studies are reviewed and discussed today Current Outpatient Prescriptions: - BIOTIN ORAL - cholecalciferol (VITAMIN D) 1,000 unit tab tablet - ascorbic acid/collagen hydr (COLLAGEN PLUS VITAMIN C ORAL) - alpha tocopheryl acetate (VITAMIN E) 400 unit capsule - CALCIUM CARBONATE/VITAMIN D3 (VITAMIN D-3 ORAL) - CYANOCOBALAMIN, VITAMIN B-12, (VITAMIN B-12 ORAL) - Ascorbic Acid (VITAMIN C) 1,000 mg tablet - cyclobenzaprine (FLEXERIL) 10 mg tablet - naproxen (NAPROSYN) 500 mg tablet - hydrocortisone (ANTI-ITCH, HC,) 1 % cream - zolpidem (AMBIEN) 5 mg tablet Review of Systems CONSTITUTIONAL: No fevers, chills night sweats, unintended weight loss CARDIOVASCULAR: No chest pain, dyspnea, palpitations, orthopnea, PND, ankle edema. PULM: No dyspnea, unexplained cough. GI: No dysphagia/odynophagia, problematic reflux, constipation, diarrhea, changes in stool habits, hematochezia, melena. : No new urinary complaints, including dysuria, gross hematuria or pyuria. NEURO: No new balance problems, peripheral weakness/paresthesias or numbness of concern. Physical Exam BP 110/72 Pulse 78 Resp 20 Wt 82.1 kg (181 lb) BMI 34.20 kg/m? General appearance: Well appearing, alert, in no acute distress, well nourished. Skin: Skin color, texture, turgor normal, no suspicious rashes or lesions Head: Normocephalic, no masses, lesions, tenderness or abnormalities Eyes: Anicteric sclera. Pupils are equally round and reactive to light. Extraocular movements are intact. Lungs: Lungs clear to auscultation. No wheezing, rhonchi, rales Heart: RRR without murmur, gallop, or rubs. Extremities: No deformities, edema, skin discoloration, clubbing or cyanosis. Good capillary refill. ASSESSMENT/PLAN: 1. Lumbar sprain, subsequent encounter - ICD9: V58.89, 847.2, ICD10: S33.5XXD (primary diagnosis) This has resolved spent atleast 20 mins with filling the form 2. Trapezius muscle spasm - ICD9: 728.85, ICD10: M62.838 Resolved 3. Lymph node enlargement - ICD9: 785.6, ICD10: R59.9 4. Abnormal mammogram - ICD9: 793.80, ICD10: R92.8 The patient has nodes and normal mammograms but abnormal ct chest which are showing nodes, we discussed that she needs mri which she has been postponing for a long time now. Spent more than 25 mins with the Patient GURPREET VILLALOBOS MD CNOV Observed: 04/12/2018 Status: COMPLETED Source: DERIDDER 9:40 AM [facility] REPOSITORY Office Visit (INTMWS) KAREN MCGRAW ([id number]) 1955 F Date Time Provider Department 04/12/18 9:40 AM GURPREET VILLALOBOS INTMWS During your visit today, we recorded the following information about you: Pulse Respiration Blood pressure Weight 78/minute 20/minute 110/72 82.1 kg GURPREET VILLALOBOS MD 04/12/2018 12:46 PM Signed Reason for Visit Patient presents with: Recheck: labs and lymph nodes under arms Karen Mcgraw is a 63 year old female who presents here today for Above Complaints.. Health Maintenance ZOSTER VACCINE (SHINGRIX)(1 of 2) MAMMOGRAM HPI She had disability form that she needs filled for 02/09/2018 till 02/20 for inability to work and from 02/20/2018 to 03/31/2018 restricted ability to work, restriction was for lifting weights More than 5 pounds. Currently able to work, her right muscle spasms have resolved and her back sprain has resolved. She needs to have an MRI of the breast to investigate her lymph nodes. She has been putting this off for the past 6 months. But she notes that when she does physical work, her right arm starts hurting her a lot. No problem-specific Assessment AND Plan notes found for this encounter. PAST MEDICAL HISTORY Diagnosis Date - Alcoholism (HCC) - Depression - Hepatitis C PAST SURGICAL HISTORY Procedure Laterality Date - COLONOSCOP W/ OR W/O [facility] SPEC 01/11/2014 Colonoscopy - LIVER BIOPSY in and 2002 - REMOVAL ADENOIDS,PRIMARY,<12 Y/O Adenoidectomy - REMOVAL OF TONSILS,<12 Y/O Tonsillectomy FAMILY HISTORY Problem Relation Age of Onset - Cancer Mother ovarian - Heart Mother cad - Cancer Sister ovarian - Psychiatry Sister bipolar - Psychiatry Brother bipolar Social History Substance Use Topics - Smoking status: Former Smoker - Smokeless tobacco: Never Used - Alcohol use No Past medical history, appointments, medications, allergies reviewed. Pertinent Lab/Diagnostic Studies are reviewed and discussed today Current Outpatient Prescriptions: - BIOTIN ORAL - cholecalciferol (VITAMIN D) 1,000 unit tab tablet - ascorbic acid/collagen hydr (COLLAGEN PLUS VITAMIN C ORAL) - alpha tocopheryl acetate (VITAMIN E) 400 unit capsule - CALCIUM CARBONATE/VITAMIN D3 (VITAMIN D-3 ORAL) - CYANOCOBALAMIN, VITAMIN B-12, (VITAMIN B-12 ORAL) - Ascorbic Acid (VITAMIN C) 1,000 mg tablet - cyclobenzaprine (FLEXERIL) 10 mg tablet - naproxen (NAPROSYN) 500 mg tablet - hydrocortisone (ANTI-ITCH, HC,) 1 % cream - zolpidem (AMBIEN) 5 mg tablet Review of Systems CONSTITUTIONAL: No fevers, chills night sweats, unintended weight loss CARDIOVASCULAR: No chest pain, dyspnea, palpitations, orthopnea, PND, ankle edema. PULM: No dyspnea, unexplained cough. GI: No dysphagia/odynophagia, problematic reflux, constipation, diarrhea, changes in stool habits, hematochezia, melena. : No new urinary complaints, including dysuria, gross hematuria or pyuria. NEURO: No new balance problems, peripheral weakness/paresthesias or numbness of concern. Physical Exam BP 110/72 Pulse 78 Resp 20 Wt 82.1 kg (181 lb) BMI 34.20 kg/m? General appearance: Well appearing, alert, in no acute distress, well nourished. Skin: Skin color, texture, turgor normal, no suspicious rashes or lesions Head: Normocephalic, no masses, lesions, tenderness or abnormalities Eyes: Anicteric sclera. Pupils are equally round and reactive to light. Extraocular movements are intact. Lungs: Lungs clear to auscultation. No wheezing, rhonchi, rales Heart: RRR without murmur, gallop, or rubs. Extremities: No deformities, edema, skin discoloration, clubbing or cyanosis. Good capillary refill. ASSESSMENT/PLAN: 1. Lumbar sprain, subsequent encounter - ICD9: V58.89, 847.2, ICD10: S33.5XXD (primary diagnosis) This has resolved spent atleast 20 mins with filling the form 2. Trapezius muscle spasm - ICD9: 728.85, ICD10: M62.838 Resolved 3. Lymph node enlargement - ICD9: 785.6, ICD10: R59.9 4. Abnormal mammogram - ICD9: 793.80, ICD10: R92.8 The patient has nodes and normal mammograms but abnormal ct chest which are showing nodes, we discussed that she needs mri which she has been postponing for a long time now. Spent more than 25 mins with the Patient GURPREET VILLALOBOS MD Referring Provider: SELF [[id number]] Allergies As of Date: 04/12/2018 Noted Allergy Reaction TRAZODONE 05/31/2016 9 - Itching Comments: Severe headache Date Reviewed: 04/12/2018 Reviewed by: Dalila (Nessa) NESSA Pop - Fully Assessed Reason for Visit: Recheck [92] Cmt: labs and lymph nodes under arms Primary Visit Diagnosis:Lumbar sprain, subsequent encounter [S33.5XXD] Other Visit Diagnoses:Trapezius muscle spasm [M62.838] Lymph node enlargement [R59.9] Abnormal mammogram [R92.8] Prescriptions as of 04/12/2018 Sig: BIOTIN ORAL Take by mouth. CHOLECALCIFEROL (VITAMIN D3) * Take 1,000 Units by mouth onc* COLLAGEN PLUS VITAMIN C ORAL Take by mouth. VITAMIN E 400 UNIT CAPSULE Take 400 Units by mouth once * VITAMIN D-3 ORAL Take by mouth. VITAMIN B-12 ORAL Take by mouth. ASCORBIC ACID (VITAMIN C) 1,0* Take 2,000 mg by mouth twice * HYDROCORTISONE 1 % TOPICAL CR* Apply 1 application to affect* Medication notes this encounter CYCLOBENZAPRINE 10 MG TABLET >> Dalila Pop MA, MA 04/12/2018 10:00 AM >> DALILA POP Apr 12, 2018 10:00 AM No longer taking NAPROXEN 500 MG TABLET >> Dalila Pop MA, MA 04/12/2018 10:00 AM >> DALILA POP Apr 12, 2018 10:00 AM No longer taking Problem List As Of Date 04/12/2018 Noted Resolved Unspecified viral hepatitis C without hepatic c*INVALID FOR* More... Lipoma of Unspecified Site [D17.9] INVALID FOR* Dizziness [R42] INVALID FOR* More... Obesity (BMI 30-39.9) [E66.9] INVALID FOR* More... SUMMARY [V999.95] INVALID FOR* More... Medications Discontinued During This Encounter zolpidem (AMBIEN) 5 mg tablet 30 t* 1 05/30/2016 04/12/2018 Class: Print RX Route: ORAL Sig: Take 1 tablet by mouth at bedtime as needed for Sedation. Disc: Reason for discontinue is not on file. naproxen (NAPROSYN) 500 mg tablet 15 t* 0 02/13/2018 04/12/2018 Route: ORAL Sig: Take 1 tablet by mouth twice daily as needed (for pain/inflammation). Take with food. Disc: Reason for discontinue is not on file. cyclobenzaprine (FLEXERIL) 10 mg tab* 30 t* 0 02/13/2018 04/12/2018 Route: ORAL Sig: Take 1 tablet by mouth three times daily as needed for Muscle Spasm. Disc: Reason for discontinue is not on file. Encounter Status:Closed by GURPREET VILLALOBOS MD on 04/12/18 BASIC METABOLIC PANL Collected: 03/27/2018 Status: F Source: DERIDDER 2:54 PM [facility] TYPE CODE TESTS RESULT OUT OF REFERENCE UNITS RANGE LAB GLU 74-99 mg/dL High Glucose 111 Result Comment: The [place] Diabetes Association (ADA) provides guidance for cutoff values for fasting glucose and random glucose. The ADA defines fasting as no caloric intake for at least 8 hours. Fas ting plasma glucose results between 100 to 125 mg/dL indicate increased risk for diabetes (prediabetes). Fasting plasma glucose results greater than or equal to 126 mg/dL meet the criteria for diagnosis of diabetes. In the absence of unequivocal hyperglycemia, results should be confirmed by repeat testing. In a patient with classic symptoms of hyperglycemia or hyperglycemic crisis, random plasma glucose results greater than or equal to 200 mg/dL meet the criteria for diagnosis of diabetes. Reference: Standards of Medical Care in Diabetes 2016, [place] [employer] Association. Diabetes Care. 2016.39(Suppl 1). LAB BUN 7-21 mg/dL BUN 13 LAB CRET 0.58-0.96 mg/dL Creatinine 0.67 LAB NA 136-144 mmol/L Sodium 142 LAB K 3.7-5.1 mmol/L Potassium 3.9 LAB CL 97-105 mmol/L Chloride 103 LAB CO2 22-30 mmol/L CO2 23 LAB AGAP 9-18 mmol/L Anion Gap 16 LAB CA 8.5-10.2 mg/dL Calcium, Total 9.6 LAB GFRAA eGFR- Amer. >60 LAB GFRNAA . eGFR-All Other Races >60 Result Comment: eGFR (Estimated GFR) Units of measure: mL/min/1.73 meters squared eGFR is derived from the reexpressed MDRD Study equation using the following parameters: serum creatinine, age, gender and race. The creatinine assay has been calibrated to be traceable to IDMS. An eGFR <60 mL/min/1.73m2 for >3 months is consistent with chronic kidney disease. Refer to KDOQI guidelines for clinical interpretation. In patients with unstable renal function, e.g. those with acute kidney injury, the eGFR may not accurately reflect actual GFR. Performed By: #### BMP, MG1 #### [facility] [address] [place], [place] [address] MAGNESIUM Collected: 03/27/2018 Status: F Source: DERIDDER 2:54 PM [facility] REPOSITORY TYPE CODE TESTS RESULT OUT OF REFERENCE UNITS RANGE LAB MG 1.7-2.3 mg/dL Magnesium 2.1 Performed By: #### BMP, MG1 #### [facility] [address] [place], [place] [address] HEMOGLOBIN A1C Collected: 03/27/2018 Status: F Source: DERIDDER 2:54 PM [facility] REPOSITORY TYPE CODE TESTS RESULT OUT OF REFERENCE UNITS RANGE LAB HGBA1C 4.3-5.6 % High Hemoglobin A1c 6.0 LAB HBA0 mg/dL Est. Average Glucose 126 Result Comment: eAG: (Estimated average glucose) is a calculated value from HgbA1c and is outside energy sales representatives of the average blood glucose level in the last 2-3 month period. Performed By: #### HBA1C #### [facility] [address] [place], [place] [address] CNPTOUTREACH Observed: 03/25/2018 Status: COMPLETED Source: DERIDDER 12:00 AM [facility] REPOSITORY Patient Outreach (FAMPST) KAREN MCGRAW ([id number]) 1955 F Date Time Provider Department 03/25/18 [facility] During your visit today, we recorded the following information about you: Allergies As of Date: 03/25/2018 Noted Allergy Reaction TRAZODONE 05/31/2016 9 - Itching Comments: Severe headache Date Reviewed: 02/13/2018 Reviewed by: Noemi Michel Ma - Fully Assessed Visit Diagnosis:Medication management [Z79.899] Order(s):HGB A1C [[id number]] Order #: [id number] FUTURE Prescriptions as of 03/25/2018 Sig: BIOTIN ORAL Take by mouth. CHOLECALCIFEROL (VITAMIN D3) * Take 1,000 Units by mouth onc* COLLAGEN PLUS VITAMIN C ORAL Take by mouth. X CYCLOBENZAPRINE 10 MG TABLET Take 1 tablet by mouth three * X NAPROXEN 500 MG TABLET Take 1 tablet by mouth twice * HYDROCORTISONE 1 % TOPICAL CR* Apply 1 application to affect* X ZOLPIDEM 5 MG TABLET Take 1 tablet by mouth at bed* VITAMIN E 400 UNIT CAPSULE Take 400 Units by mouth once * VITAMIN D-3 ORAL Take by mouth. VITAMIN B-12 ORAL Take by mouth. ASCORBIC ACID (VITAMIN C) 1,0* Take 2,000 mg by mouth twice * Problem List As Of Date 03/25/2018 Noted Resolved Unspecified viral hepatitis C without hepatic c*INVALID FOR* More... Lipoma of Unspecified Site [D17.9] INVALID FOR* Dizziness [R42] INVALID FOR* More... Obesity (BMI 30-39.9) [E66.9] INVALID FOR* More... SUMMARY [V999.95] INVALID FOR* More... Encounter Status:Closed by EL PRODUSER on 07/25/18 PROGRESS Observed: 02/13/2018 Status: COMPLETED Source: DERIDDER 7:58 AM [facility] REPOSITORY [facility] ID: [id number] Author: Tara Betancourt Service: (none) Author Type: Physician Harbor Engineer Type: Progress Notes Filed: 02/13/2018 8:36 AM Note Text: Chief Complaint Patient presents with: Back Pain: since Saturday, mid back, spasms ED Follow-up: Naty, given pain medication, Saturday night HPI Karen Mcgraw is a 62 year old female who presents here today for Above Complaints.. On 02/09/18 developed R mid-low back pain after twisting wrong. Applied heat but that didn't help much so went to ER- [facility]. At time of visit, ER notes are not available- per patient a CT was done that was normal (looked for kidney stones). They sent her home with [facility]. Since ER visit- still having spasms ricardo after laying down. At rest still at about a 7/10 on pain scale. R side pain but not radiating into leg. Past medical history, appointments, medications, allergies reviewed. Previous Medical History PAST MEDICAL HISTORY Diagnosis Date - Alcoholism (HCC) - Depression - Hepatitis C Previous Surgical History PAST SURGICAL HISTORY Procedure Laterality Date - COLONOSCOP W/ OR W/O [facility] SPEC 01/11/2014 Colonoscopy - LIVER BIOPSY in and 2002 - REMOVAL ADENOIDS,PRIMARY,<12 Y/O Adenoidectomy - REMOVAL OF TONSILS,<12 Y/O Tonsillectomy Family History FAMILY HISTORY Problem Relation Age of Onset - Cancer Mother ovarian - Cancer Sister ovarian - Heart Mother cad - Psychiatry Sister bipolar - Psychiatry Brother bipolar Patient Allergies ALLERGIES Allergen Reactions - Trazodone Itching Severe headache Current Medications Current Outpatient Prescriptions on File Prior to Visit: alpha tocopheryl acetate (VITAMIN E) 400 unit capsule Take 400 Units by mouth once daily. CALCIUM CARBONATE/VITAMIN D3 (VITAMIN D-3 ORAL) Take by mouth. Ascorbic Acid (VITAMIN C) 1,000 mg tablet Take 2,000 mg by mouth twice daily. hydrocortisone (ANTI-ITCH, HC,) 1 % cream Apply 1 application to affected area twice daily. zolpidem (AMBIEN) 5 mg tablet Take 1 tablet by mouth at bedtime as needed for Sedation. CYANOCOBALAMIN, VITAMIN B-12, (VITAMIN B-12 ORAL) Take by mouth. No current facility-administered medications on file prior to visit. Social History Social History Marital status: Spouse name: Years of education: Number of children: 0 Occupational History Occupation Employer [employer] Social History Main Topics Smoking status: Former Smoker Packs/day: 0.00 Years: 0.00 Smokeless tobacco: Never Used Alcohol use: No Drug use: No Sexual activity: Yes Partners with: Male Review of Symptoms REVIEW OF SYSTEMS GENERAL: No weight loss, malaise or fevers MUSCULOSKELETAL: SEE HPI NEURO: No history of headaches, syncope, paralysis, seizures or tremors EXAM: BP 124/76 Pulse 80 Temp 36.4 ?C (97.6 ?F) (Tympanic) Resp 16 Wt 83.5 kg (184 lb) BMI 34.77 kg/m? General Appearance: Well appearing, alert, in no acute distress, well-hydrated, well nourished.. Back: no pain with palpation of spine. Pain to palp of R thoracic paraspinous muscles and along R scapula. SLR neg. Full lumbar ROM. NVI. No CVA tenderness. Peripheral Pulses: Normal. Neurologic:. Reflexes normal and symmetric. Sensation intact.. Health Maintenance List MAMMOGRAM due on 11/23/2017 INFLUENZA(Season Ended) due on 06/14/2018 PAP EVERY 5 YEARS due on 12/30/2018 HPV EVERY 5 YEARS due on 12/30/2018 COLORECTAL CANCER SCREENING,SEE MODIFIER due on 01/11/2019 DIABETES SCREEN due on 08/13/2020 LIPID SCREEN due on 05/07/2022 DTAP,TDAP,TD(2 - Td) due on 07/25/2025 HEPATITIS C SCREENING Completed ASSESSMENT/PLAN: 1. Acute right-sided thoracic back pain - ICD9: 724.1, ICD10: M54.6 Thoracic sprain - Add flexeril and naproxen - Can continue [facility] prn - Follow up in 1-2 weeks or sooner if symptoms persist or worsen ALBA BETANCOURT PA-C CNOV Observed: 02/13/2018 Status: COMPLETED Source: DERIDDER 7:40 AM [facility] REPOSITORY Office Visit (FAMPWS) KAREN MCGRAW ([id number]) 1955 F Date Time Provider Department 02/13/18 7:40 AM VINICIO BETANCOURT) FAMPWS During your visit today, we recorded the following information about you: Temperature Pulse Respiration Blood pressure 97.6 degrees 80/minute 16/minute 124/76 Weight 83.5 kg ALBA BETANCOURT PA-C 02/13/2018 8:36 AM Signed Chief Complaint Patient presents with: Back Pain: since Saturday, mid back, spasms ED Follow-up: Naty, given pain medication, Saturday night HPI Karen Mcgraw is a 62 year old female who presents here today for Above Complaints.. On 02/09/18 developed R mid-low back pain after twisting wrong. Applied heat but that didn't help much so went to ER- [facility]. At time of visit, ER notes are not available- per patient a CT was done that was normal (looked for kidney stones). They sent her home with [facility]. Since ER visit- still having spasms ricardo after laying down. At rest still at about a 7/10 on pain scale. R side pain but not radiating into leg. Past medical history, appointments, medications, allergies reviewed. Previous Medical History PAST MEDICAL HISTORY Diagnosis Date - Alcoholism (HCC) - Depression - Hepatitis C Previous Surgical History PAST SURGICAL HISTORY Procedure Laterality Date - COLONOSCOP W/ OR W/O [facility] SPEC 01/11/2014 Colonoscopy - LIVER BIOPSY in and 2002 - REMOVAL ADENOIDS,PRIMARY,<12 Y/O Adenoidectomy - REMOVAL OF TONSILS,<12 Y/O Tonsillectomy Family History FAMILY HISTORY Problem Relation Age of Onset - Cancer Mother ovarian - Cancer Sister ovarian - Heart Mother cad - Psychiatry Sister bipolar - Psychiatry Brother bipolar Patient Allergies ALLERGIES Allergen Reactions - Trazodone Itching Severe headache Current Medications Current Outpatient Prescriptions on File Prior to Visit: alpha tocopheryl acetate (VITAMIN E) 400 unit capsule Take 400 Units by mouth once daily. CALCIUM CARBONATE/VITAMIN D3 (VITAMIN D-3 ORAL) Take by mouth. Ascorbic Acid (VITAMIN C) 1,000 mg tablet Take 2,000 mg by mouth twice daily. hydrocortisone (ANTI-ITCH, HC,) 1 % cream Apply 1 application to affected area twice daily. zolpidem (AMBIEN) 5 mg tablet Take 1 tablet by mouth at bedtime as needed for Sedation. CYANOCOBALAMIN, VITAMIN B-12, (VITAMIN B-12 ORAL) Take by mouth. No current facility-administered medications on file prior to visit. Social History Social History Marital status: Spouse name: Years of education: Number of children: 0 Occupational History Occupation Employer [employer] Social History Main Topics Smoking status: Former Smoker Packs/day: 0.00 Years: 0.00 Smokeless tobacco: Never Used Alcohol use: No Drug use: No Sexual activity: Yes Partners with: Male Review of Symptoms REVIEW OF SYSTEMS GENERAL: No weight loss, malaise or fevers MUSCULOSKELETAL: SEE HPI NEURO: No history of headaches, syncope, paralysis, seizures or tremors EXAM: BP 124/76 Pulse 80 Temp 36.4 ?C (97.6 ?F) (Tympanic) Resp 16 Wt 83.5 kg (184 lb) BMI 34.77 kg/m? General Appearance: Well appearing, alert, in no acute distress, well-hydrated, well nourished.. Back: no pain with palpation of spine. Pain to palp of R thoracic paraspinous muscles and along R scapula. SLR neg. Full lumbar ROM. NVI. No CVA tenderness. Peripheral Pulses: Normal. Neurologic:. Reflexes normal and symmetric. Sensation intact.. Health Maintenance List MAMMOGRAM due on 11/23/2017 INFLUENZA(Season Ended) due on 06/14/2018 PAP EVERY 5 YEARS due on 12/30/2018 HPV EVERY 5 YEARS due on 12/30/2018 COLORECTAL CANCER SCREENING,SEE MODIFIER due on 01/11/2019 DIABETES SCREEN due on 08/13/2020 LIPID SCREEN due on 05/07/2022 DTAP,TDAP,TD(2 - Td) due on 07/25/2025 HEPATITIS C SCREENING Completed ASSESSMENT/PLAN: 1. Acute right-sided thoracic back pain - ICD9: 724.1, ICD10: M54.6 Thoracic sprain - Add flexeril and naproxen - Can continue [facility] prn - Follow up in 1-2 weeks or sooner if symptoms persist or worsen EDINSON FERNANDEZ PA-C 02/13/2018 8:16 AM Signed Follow up as needed in 1-2 weeks Referring Provider: ER STAFF [[id number]] Allergies As of Date: 02/13/2018 Noted Allergy Reaction TRAZODONE 05/31/2016 9 - Itching Comments: Severe headache Date Reviewed: 02/13/2018 Reviewed by: Noemi Michel Ma - Fully Assessed Reason for Visit: Back Pain [12] Cmt: since Saturday, mid back, spasms ED Follow-up [821] Cmt: [place], given pain medication, Saturday night Reason For Visit History Recorded Primary Visit Diagnosis:Acute right-sided thoracic back pain [M54.6] Order(s):cyclobenzaprine (FLEXERIL) 10 mg tabletTake 1 tablet by mouth three times daily as needed for Muscle Spasm.Disp: 30 tabletRfl: 0 naproxen (NAPROSYN) 500 mg tabletTake 1 tablet by mouth twice daily as needed (for pain/inflammation). Take with food.Disp: 15 tabletRfl: 0 Prescriptions as of 02/13/2018 Sig: BIOTIN ORAL Take by mouth. CHOLECALCIFEROL (VITAMIN D3) * Take 1,000 Units by mouth onc* COLLAGEN PLUS VITAMIN C ORAL Take by mouth. VITAMIN E 400 UNIT CAPSULE Take 400 Units by mouth once * VITAMIN D-3 ORAL Take by mouth. ASCORBIC ACID (VITAMIN C) 1,0* Take 2,000 mg by mouth twice * CYCLOBENZAPRINE 10 MG TABLET Take 1 tablet by mouth three * NAPROXEN 500 MG TABLET Take 1 tablet by mouth twice * HYDROCORTISONE 1 % TOPICAL CR* Apply 1 application to affect* ZOLPIDEM 5 MG TABLET Take 1 tablet by mouth at bed* VITAMIN B-12 ORAL Take by mouth. Problem List As Of Date 02/13/2018 Noted Resolved Unspecified viral hepatitis C without hepatic c*INVALID FOR* More... Lipoma of Unspecified Site [D17.9] INVALID FOR* Dizziness [R42] INVALID FOR* More... Obesity (BMI 30-39.9) [E66.9] INVALID FOR* More... SUMMARY [V999.95] INVALID FOR* More... Other instructions from your clinician: Follow up as needed in 1-2 weeks Prescriptions ordered this encounter Disp Refills Start End CYCLOBENZAPRINE 10 MG TABLET 30 t* 0 02/13/2018 Route: ORAL Sig: Take 1 tablet by mouth three times daily as needed for Muscle Spasm. NAPROXEN 500 MG TABLET 15 t* 0 02/13/2018 Route: ORAL Sig: Take 1 tablet by mouth twice daily as needed (for pain/inflammation). Take with food. Disposition: Return if symptoms worsen or fail to improve. Follow-up and Disposition History Recorded Letter Text Alba Betancourt PA-C [address], [place] [address] 02/13/2018 Karen Mcgraw [facility]# [id number] [address] [place] [address] TO WHOM IT MAY CONCERN: This is to certify that Ms. Karen Mcgraw has been under my care for injury and was unable to work from 02/11/18 through 02/16/18. Return to work 02/17/18. Sincerely yours, Alba Betancourt PA-C Encounter Status:Closed by ALBA WHITNEY on 02/13/18 EMERGENCY DEPARTMENT Observed: 02/10/2018 Status: F Source: [place] SUMMARY 7:21 AM [facility] Medical Records Department [address] [place] [address] Emergency Department Summary 02/10/18 0339 MR#: [id number] Acct: [id number] Name: KAREN MCGRAW Rep #: [id number] : 1955 62 From: Jordan Bond MD PCP: Gurpreet Villalobos MD Status: DEP ER - ER Visit Summary Date of Service: 02/10/18 Chief Complaint: Right flank pain History of Present Illness: The patient is a [address] Villalobos. She reports that 830 this evening she was standing in the kitchen had the abrupt onset of a right flank pain. She is taking an aching pain is 10 out of 10 severity. Is worsened by bending or stooping. She is used a heating pad without relief. She denies having had anything like this previously. However, she does have known kidney stones. She denies any radiation to her legs. No numbness or weakness in her legs. No problems with her bowels or bladder. No groin numbness. She denies any recent trauma. No fall, MVA, or change in activity. Her review of systems is negative. Physical Examination: Vitals: Stable. Afebrile. General: Well-nourished and well-developed. Head: Normocephalic atraumatic. Neck: Supple, no lymphadenopathy. No JVD. Nontender. Cardiovascular: Regular rate and rhythm. No murmurs. Respiratory: No respiratory distress. Clear to auscultation bilaterally. Abdominal: Soft, nontender, nondistended, normal bowel sounds. No guarding, rebound, or peritoneal signs. Back: Mild right CVA tenderness to palpation. No vertebral tenderness. Extremities: Nontender, no edema. Skin: Normal color, no rash. Neurologic: Alert and oriented 3. Cranial nerves II through XII are intact. Normal strength and sensation. Psych: Normal affect. Test Results: Urinalysis is negative. CT flank shows multiple bilateral intrarenal stones and a 16 mm left ovarian cyst. There are no ureteral stones. Emergency Department Course and Treatment: Patient was treated with Toradol IV and is resting comfortably. Treatment Plan: An OARRS report was obtained and it was negative. She will be discharged with [place] and instructed to follow-up with Dr. Villalobos in 3-5 days if not improving. Return to the emergency department for any worsening symptoms. Disposition: To home in improved and stable condition. Impression: 1. Back pain, acute. This note was generated with Zafu dictation software. It may contain incorrect words, spelling, and punctuation that were not noted in review of the chart prior to signing ED Disposition - Plan for ED Patient: Disposition: Home or Assisted Living Chief Complaint: Back Instructions: ED Spasm Back No Trauma Prescriptions: Hydrocodone/Acetaminophen [Ames 5-325 Tablet] 1 - 2 each PO 4X/DAY PRN PRN 5 Days #20 tablet PRN Reason: Pain Referrals: Gurpreet Villalobos MD [Primary Care Provider] - 3-5 Days if not improving What to do if you have Problems For any increased pain, shortness of breath, bleeding, nausea or vomiting, chest pain, or any unexpected problems, contact your Primary Care Provider. Call [facility] ([phone]) or report to the closest Emergency Room. Call 911 if necessary. 02/10/18 0721 <Electronically signed by Jordan Bond MD> Date Jordan Bond MD Cosigner Signature (If Indicated): Date CC: Gurpreet Villalobos MD URINALYSIS, COMPLETE Collected: 02/10/2018 Status: F Source: [place] 2:00 AM [facility] [place], [place] REPOSITORY Order Comment: Order Date: 02/10/18 How was Urine Obtained? CLEAN CATCH TYPE CODE TESTS RESULT OUT OF RANGE REFERENCE UNITS LAB L400.3000 Yellow COLOR Normal Yellow LAB L400.3050 Clear Normal CLARITY Clear LAB L400.3200 Normal mg/dl Normal GLUCOSE, UR Normal LAB L400.3300 Negative mg/dL Normal BILIRUBIN URINE Negative LAB L400.3400 Negative mg/dl Normal KETONE UR Negative LAB L400.3465 1.002-1.030 Normal SP.GR. DIPSTX 1.015 LAB L400.3550 5.0 - 8.0 pH UR Normal 8.0 LAB L400.3600 Negative mg/dl PROT Normal DIPSTX Negative LAB L400.3700 Normal mg/dl Normal UROBILI Normal LAB L400.3750 Negative Normal NITRITE UR Negative LAB L400.3780 Negative /ul High 10 OCCULT BLOOD-UR LAB L400.3800 Negative /ul High LEUK 25 ESTERASE LAB L400.4050 0-5 /hpf WBC 0 Normal SEEN LAB L400.4100 0-5 /hpf Normal RBC-UA 0-5 SEEN LAB L400.4150 5-10 /hpf SQUAM Normal EPI 0-5 SEEN LAB L400.4300 None Seen /hpf 0 Normal BACTERIA SEEN LAB L400.4350 <or=2+ /hpf 0 Normal MUCUS, URINE SEEN Performed By: #### L400.0001 #### [facility] [address] [place], [address] ABDOMEN/PELVIS WITHOUT Observed: 02/10/2018 Status: F Source: [place] CONT 1:33 AM [facility] [place], [place] REPOSITORY [facility] Imaging Services [address] [place] [address] Abdomen/Pelvis without Cont MR#: [id number] Acct: [id number] Name: KAREN MCGRAW Rep #: [id number] : 1955 F 62 From: Facundo Awad MD PCP: Gurpreet Villalobos MD Status: REG ER Study: Abdomen/Pelvis without Cont Date of Exam: 02/10/18 Exam# [id number] Ordering Dr: Jordan Bond MD STUDY: CT ABDOMEN AND PELVIS WITHOUT CONTRAST REASON FOR EXAM: Female, 62 years old. Right flank pain RADIATION DOSAGE (If Supplied By Facility): CTDIvol = ( 15.28 ) mGy, DLP = ( 691.10 ) mGycm TECHNIQUE: Transaxial images were obtained from the dome of the diaphragm to the symphysis pubis without oral contrast, and without intravenous contrast. Sagittal and coronal images were reconstructed. Individualized dose optimization techniques were used for this CT. COMPARISON: None. FINDINGS: The visualized lung bases are unremarkable. The visualized portions of the heart are within normal limits. Normal liver. The gallbladder is contracted. Normal spleen. Normal pancreas. Normal bilateral adrenal glands. Multiple bilateral nonobstructing renal calculi, the largest on the left measuring 5 mm. Normal visualized stomach. Normal small intestine. There are multiple colonic diverticula consistent with diverticulosis. The appendix is visualized and appears normal. Normal abdominal aorta. Normal inferior vena cava. Normal retroperitoneum. Normal urinary bladder. Free pelvic fluid. Probable 16mm left ovary cyst. Normal abdominal wall. Normal osseous structures. CT/Abdomen/Pelvis without Cont IMPRESSION: No evidence of acute intestinal pathology or acute obstructive uropathy. Free pelvic fluid. Probable 16mm left ovary cyst. Bilateral nonobstructing renal calculi. Electronically Signed: Facundo Awad MD at 3:14 EDT Tel , Service support , CC: Gurpreet Villalobos MD; Jordan Bond MD Bone Drier: Signed ALLERGIES ALLERGIES DATE TYPE / CODE NAME / CODE REACTION SEVERITY SOURCE 11/05/2018 Drug trazodone/G84803 Other Unknown [facility] Allergy/416 4610(RXNORM) [facility] 610930(SNOM Repository ED CT) 05/31/2016 DRUG TRAZODONE ITCHING Med [address] 785743(SNOM Repository ED CT) 05/31/2016 DRUG TRAZODONE ITCHING [address] [address]447(SNOM Repository ED CT) ENCOUNTERS ENCOUNTERS ADMIT/DISCHARGE ACCOUNT NUMBER ADMITTING ENCOUNTER LOCATION SOURCE CLASS 11/10/2018 [id number] Ambulatory [facility] Repository 11/07/2018/11/10/19 [id number] Ambulatory [address] Repository 11/06/2018 [id number] Ambulatory [facility] ding:OT Repository 11/06/2018/11/06/19 [id number] Ambulatory [address] Repository 11/05/2018/11/05/[id number] Repository 11/05/2018/11/06/19 [id number] Ambulatory [address] Repository 11/05/2018/11/05/19 [id number] Emergency [place] [facility] ding:ED Repository 11/04/2018/11/05/19 [id number] Ambulatory [address] [place] Repository 11/03/2018/11/05/19 [id number] Ambulatory [address] [place] Repository 10/31/2018 [id number] Ambulatory [facility] [place] Repository 10/29/2018/10/29/19 [id number] Ambulatory [address] [place] Repository 10/29/2018/10/30/19 [id number] Ambulatory [address] [place] Repository 10/23/2018/10/23/19 [id number] Emergency [place] [facility] ding:ED Repository 10/22/2018/10/22/19 [id number] Ambulatory [address] [place] Repository 10/22/2018/10/23/19 [id number] Ambulatory [address] [place] Repository 10/22/2018/10/23/19 [id number] Ambulatory [address] [place] Repository 10/22/2018/10/22/19 [id number] Ambulatory [address] [place] Repository 10/15/2018/10/15/19 [id number] Ambulatory [address] [place] Repository 10/10/2018/10/12/20 [id number] Ambulatory [address] [place] Repository 10/01/2018/10/03/20 [id number] Ambulatory [address] [place] Repository 09/30/2018/10/01/20 [id number] Ambulatory [address] [place] Repository 09/18/2018/09/19/20 [id number] Ambulatory [address] [place] Repository 07/07/2018 [id number] Ambulatory [facility] Repository 04/12/2018/04/14/20 [id number] Ambulatory [address] [place] Repository 03/27/2018 [id number] Ambulatory [facility] [place] Repository 02/13/2018/02/15/20 [id number] Ambulatory [address] [place] Repository 02/10/2018/02/11/20 [id number] Emergency [place] [facility] ding:ED Repository PAYERS PAYERS ENCOUNTER GUARANTOR PAYER SUBSCRIBER SOURCE 11/06/2018 KAREN S Primary KAREN S [place] [id number] Insurance:ANTHEMPolicy CANTLEBERRYDOB: Community R[place]IE [id number] [id number] Repository [address]Uus: (330) Date:1461-20-72[phone] () [id number], [place] [address]CP: 11/06/2018 Secondary Insurance:SELF NOT GIVENUNK [place] PAY INSURANCEPolicy Community Number: Effective Hospital Date:2018-10-29 Repository 11/05/2018 KAREN S Primary KAREN S [place] [id number] Insurance:ANTHEMPolicy CANTLEBERRYDOB: [facility] RICHIE [place]: [id number] [id number] Repository [address]Blr: (330) Date:9071-58-76HB [phone] () [id number], [place] [address]FO: 11/05/2018 Secondary Insurance:SELF NOT GIVENUNK [place] PAY INSURANCEPolicy Community Number: Effective Hospital Date:2018-11-05 Repository 10/23/2018 KAREN S Primary KAREN S [place] [id number] Insurance:ANTHEMPolicy CANTLEBERRYDOB: [facility] RICHIE [place]: [id number] [id number] Repository [address]Fcl: ([phone]) Date:8264-60-79PM [phone] () [id number], [place] [address]LS: 10/23/2018 Secondary Insurance:SELF NOT GIVENUNK [place] PAY INSURANCEPolicy Community Number: Effective Hospital Date:2018-10-23 Repository 07/07/2018 Karen Primary Karen [facility] [place]OB: Insurance:Workers [place]DOB: System CompensationPolicy [id number] Repository Richie Number: Effective Date: [place], [place] [address]Jgg: () 02/10/2018 KAREN [place] Primary Insurance[facility] [id number] [place] [address] Number: [place], [place] Date:2018-02-10 [facility] [address]Iyu: ()
== END 2018-11-06 19:00 | disposition home or self-care (01) ==
LOC: OT 14:00
PROVIDERS: Family Provider Internal Medicine; PCP Internal Medicine; Referring Provider Nurse Practitioner Primary Care; Visit Provider Nurse Practitioner Primary Care
DX: R10.32 Left lower quadrant pain (principal); R29.898 Other symptoms and signs involving the musculoskeletal system
CPT/HCPCS: 97750

== ENCOUNTER 2019-12-30 14:37 | Emergency (ER) | payer MEDICAID, SELFPAY ==
[2019-12-30 14:40] VITALS: BP 146/89; PULSE 84; PULSE 92; RESP 17; TEMP 36.8; O2SAT 18; O2SAT 97; BMI 39.9
[2019-12-30 14:51] VITALS: O2SAT 98
[2019-12-30 14:53] VITALS: BP 147/78; PULSE 84; RESP 18; TEMP 36.4; O2SAT 98
--- NOTE | 2019-12-30 15:20 | ED.DCSUM_ITS ---
- ER Visit Summary Date of Service: 12/30/19 Chief Complaint: Cough with green sputum History of Present Illness: The patient is a 64 F history of hypertension. He states he has had a cough for 2 days green sputum. No fever. No chest pain. No shortness of breath. She herself has had no recent travel. No obvious exposure [place] with COVID 19. No leg pain or swelling. Physical Examination: Middle-aged female no acute distress vital signs stable afebrile. Pulse ox 90% on room air no signs hypoxia. H EENT exam unremarkable. Neck nontender no JVD no lymphadenopathy. Lungs clear to auscultation bilaterally. No rales, rhonchi or wheezing. Heart regular rate and rhythm no murmur rate about 80. Abdomen soft nontender normal bowel sounds no peritoneal signs. Patient is moving all 4 extremities. Calves are nontender without edema or cords. Back nontender. Neurologically she is awake alert with no focal motor deficits. Test Results: Chest x-ray 2 views AP lateral bowel sounds shows no acute abnormality. Normal cardiac silhouette. No infiltrate. Emergency Department Course and Treatment: History and exam are consistent with a viral syndrome. Clinically the patient does not have pneumonia. Treatment Plan: Symptomatic treatment. Fluids and rest. Follow-up with your doctor not improving. Disposition: Discharge Impression: Acute viral respiratory infection This note was generated with [employer] dictation software. It may contain incorrect words, spelling, and punctuation that were not noted in review of the chart prior to signing ED Disposition - Plan for ED Patient: Disposition: Home or Assisted Living Instructions: URI, Viral, No Abx (Adult) Referrals: Tatiana Cooper MD [Primary Care Provider] - 1 Week if not improving Additional Instructions: Plenty of fluids and rest. Follow-up with your doctor. Follow-up with your doctor if not improving.
--- NOTE | 2019-12-30 15:20 | RAD_ITS ---
STUDY: X-RAY CHEST REASON FOR EXAM: Female, 64 years old. PRODUCTIVE COUGH TECHNIQUE: PA and lateral views of the chest. COMPARISON: 06/29/17. FINDINGS: Cardiac silhouette unremarkable. Pulmonary vascularity unremarkable. Aorta unremarkable. No focal airspace opacities. No pleural effusions. Upper abdomen unremarkable. Osseous structures intact. No pneumothorax. RAD/Chest PA and Lateral IMPRESSION: No acute cardiopulmonary findings Electronically Signed: Sajan Lowe, at 16:03 EDT Tel , Service support ,
--- NOTE | 2019-12-30 15:23 | ED.DEP ---
ED Disposition - Plan for ED Patient: Disposition: Home or Assisted Living Instructions: URI, Viral, No Abx (Adult) Referrals: Tatiana Cooper MD [Primary Care Provider] - 1 Week if not improving Additional Instructions: Plenty of fluids and rest. Follow-up with your doctor. Follow-up with your doctor if not improving.
[2019-12-30 16:07] VITALS: RESP 18
== END 2019-12-30 16:08 | disposition home or self-care (01) ==
LOC: ED 15:56
PROVIDERS: Emergency Provider Emergency Medicine; PCP Internal Medicine
DX: J06.9 Acute upper respiratory infection, unspecified (principal); I10 Essential (primary) hypertension
CPT/HCPCS: 71046; 99282

== ENCOUNTER 2020-01-01 03:06 | Emergency (ER) | payer MEDICAID, SELFPAY ==
[2020-01-01 03:07] VITALS: BP 144/92; PULSE 108; RESP 18; TEMP 37.9; O2SAT 98; BMI 38.7
[2020-01-01 03:12] VITALS: BP 144/92; PULSE 108; RESP 18; TEMP 38.4; O2SAT 98
--- NOTE | 2020-01-01 03:41 | ED.VIS.URI ---
History of Present Illness Chief Complaint: Fever Informant: Patient Onset: Days - 2-3 Timing: Waxes and wanes Quality: 101 Current Severity: Moderate Maximum Severity: Moderate Worsened by: - - nothing Relieved by: - - nothing but hasn't tried any medications Associated Symptoms: Nasal Congestion - and rhinorrhea, Myalgias, Productive Cough - green nonbloody sputum. Negative for: Headache, Nausea, Vomiting, Diarrhea, Shortness of Breath, Chest Pain Narrative: Patient seen here yesterday for the same symptoms. She returned tonight for 2 reasons. She states that when she was discharged the doctor told her if her fever gets higher to get reevaluated, which it did, and went from 99.X to 101.X. Additionally, she states that she called here earlier wondering what she should do about her fever and the nurses told her to take Tylenol, so since she did not have any, she came to get some. She has had no travel out of the area recently. She denies having any contact with anyone she knows of with any infections including coronavirus or influenza. She did not have influenza vaccine this past winter season. She had a chest x-ray yesterday when she was here that was negative and her vital signs were good. She does not have a history of chronic lung disease that she knows of. - Past Medical History (1) Hypertension Status: Chronic Past Medical History - Allergies and Home Meds Allergies/Adverse Reactions: Allergies trazodone Adverse Reaction (Verified 01/01/20 03:13) Itching Primary Care Physician: Tatiana Cooper MD [Primary Care Provider] - Surgical History: no surgical history Smoking Status: Former smoker Review of Systems General: Reports: Chills, Fever, Malaise. Denies: Sweats Eyes: Denies: Visual changes - bilaterally, Diplopia ENT: Reports: Rhinorrhea - And congestion, Sore throat. Denies: Bilateral ear pain Cardiovascular: Denies: Chest pain, Palpitations Respiratory: Reports: Cough, Sputum. Denies: Dyspnea, Dyspnea on exertion Gastrointestinal: Denies: Abdominal pain, Nausea, Vomiting, Diarrhea, Melena, Hematochezia Genitourinary: Denies: Dysuria, Hematuria, Frequency Musculoskeletal: Reports: Myalgias. Denies: Neck pain, Back pain, Swelling, Extremity Pain Skin: Denies: Rash, Wounds Neurological: Denies: Headache, Weakness, Numbness Physical Exam Vital Signs/Narrative: Vital Signs Temp Pulse Resp BP Pulse Ox 01/01/20 03:12 101.2 F H 108 H 18 144/92 H 98 01/01/20 03:07 100.2 F H 108 H 18 144/92 H 98 Inital Vital Signs reviewed: Yes General: Well nourished, Well developed, - - Well-appearing, NAD. Conversive in full sentences. Head: Normocephalic, Atraumatic Eyes: Perrl, EOMI Ears: Normal external canal, TM's clear Nose: Normal Inspection. Negative for: Purulent Drainage Mouth/Throat: Normal Inspection, No Posterior Erythema, Airway Patent Neck: Supple, Nontender, No Lymphadenopathy, No Meningismus Cardiovascular: Regular rate, Regular rhythm, No murmurs, Tachycardia - Mild Respiratory: No distress, CTA bilaterally, Chest nontender Abdomen: Soft, Nontender, Nondistended, Normal bowel sounds Back: Nontender, Normal Inspection Extremities: Nontender, No edema. Negative for: Calf Tenderness Skin: Normal color, No rash, No Trauma Neurological: Alert, Oriented x3, Cranial nerves II-XII grossly intact, Normal Strength, Normal Sensation, Normal Gait Psychological: Normal affect, Normal Mood Diagnostic/Tx/Re-eval - Medical Decision Making Patient tested positive for influenza. This makes her much less likely to have the novel coronavirus infection. Patient does not have COVID-19 exposure and is not critically ill or clinically septic, has not traveled to/from a region with a CDC level 2 or 3 travel health notice, vital signs are stable without hypoxia, is not ill enough to require admission to the hospital, and at this time does not meet current [facility] requirements for testing for COVID-19. I discussed all this with patient, started on Tamiflu gave her a prescription for it. She is comfortable with this plan of outpatient treatment. ED Disposition - Plan for ED Patient: Disposition: Home or Assisted Living Diagnosis: Influenza A Instructions: INFLUENZA (Adult) Prescriptions: Oseltamivir Phosphate [Tamiflu] 75 mg PO BID #10 cap Transmission Status: Pending to [facility] Referrals: Tatiana Cooper MD [Primary Care Provider] - 10-14 Days if not better
[2020-01-01] MEDS: Acetaminophen 500 MG Tablet 1000 MG PO (03:47)
[2020-01-01 04:45] VITALS: BP 129/90; PULSE 100; RESP 16; TEMP 37.2; O2SAT 96
[2020-01-01] MEDS: Oseltamivir Phosphate 75 MG Capsule PO (04:45)
== END 2020-01-01 05:00 | disposition home or self-care (01) ==
PROVIDERS: Emergency Provider Emergency Medicine; PCP Internal Medicine
DX: J10.1 Influenza due to other identified influenza virus with other respiratory manifestations (principal); I10 Essential (primary) hypertension; Z87.891 Personal history of nicotine dependence
CPT/HCPCS: 87804; 87807; 99283

== ENCOUNTER 2020-09-09 20:08 | Observation (INO) | payer MEDICAID, SELFPAY ==
[2020-09-09] VITALS (7 sets, daily range): BP systolic 133–157; BP diastolic 74–118; PULSE 66–89; RESP 16–18; TEMP 36.3–36.6; O2SAT 99–100; BMI 38.1; BMI 37.0; BMI 37.1
--- NOTE | 2020-09-09 20:25 | EKG12_ITS ---
Test Reason : CHEST PRESSURE Blood Pressure : / mmHG Vent. Rate : 069 BPM Atrial Rate : 069 BPM P-R Int : 140 ms QRS Dur : 084 ms QT Int : 384 ms P-R-T Axes : -21 045 139 degrees QTc Int : 411 ms Normal sinus rhythm T wave abnormality, consider anterior ischemia Abnormal ECG Confirmed by JANNETTE TAVERAS, NOELLE ([id number]), art editor EDIN SONG ([id number]) on 09/13/2020 9:11:50 AM Referred By: PARI MUNOZ Confirmed By:NOELLE BHATIA MD
--- NOTE | 2020-09-09 20:30 | RAD_ITS ---
STUDY: X-RAY CHEST REASON FOR EXAM: Female, 65 years old. COMPLAINS OF HYPERTENSION AT HOME, and quot;HEART FEELS FUNNY and quot; AND SORE THROAT FOR PAST 3 DAYS TECHNIQUE: Frontal view of the chest COMPARISON: 25 December 2019 FINDINGS: The lungs are clear and expanded. There is no demonstrated pleural abnormality. Normal size heart. Normal mediastinum and khushboo. Normal visualized pulmonary arteries. Normal visualized aortic arch and descending thoracic aorta. Normal visualized thoracic spine. Normal visualized ribs, clavicles, and shoulders. There is no demonstrated abnormality of the visualized soft tissue structures of the upper abdomen. RAD/Chest 1 View (Portable) IMPRESSION: Normal x-ray examination of the chest. Electronically Signed: Betito Kellogg, at 21:05 EST Tel , Service support ,
[2020-09-09 20:39] LABS: Absolute Neutrophil Count 4.4 X10^3/uL (2.0-7.7); Basophil# 0.05 X10^3/uL; Basophil% 0.5 % (0-1); Eosinophil# 0.31 X10^3/uL; Eosinophils% 3.4 % (0-5); Hematocrit 43.7 % (37-47); Hemoglobin 13.9 g/dL (12.0-15.0); Lymphocyte % 40.4 % (19-41); Mean Corp Hgb Conc 31.8 g/dL (32-36); Mean Corpuscular Hgb 26.8 pg (27.0-32.0); Mean Corpuscular Volume 84.4 fL (81-99); Mean Platelet Vol. 10.5 fl (6.2-12.0); Monocyte# 0.62 X10^3/uL; Monocyte% 6.8 % (0-10); NRBC Flagged by Analyzer 0 % (0-5); Neutrophil # 4.41 X10^3/uL (2.7-7.7); Neutrophil % 48.2 % (47-70); Platelet Count 327 K/mm3 (150-450); RBC Distribution Width CV 13.2 % (11.6-14.6); RBC Distribution Width SD 40.9 fl (35.1-43.9); Red Blood Count 5.18 M/mm3 (4.2-5.4); White Blood Count 9.2 K/mm3 (4.4-11.0)
[2020-09-09] MEDS: Aspirin 81 MG TAB.CHEW 324 MG PO (20:39)
[2020-09-09] MEDS: 0.9% Normal Saline 1,000 ML 150 ML IV (20:41)
[2020-09-09] MEDS: Nitroglycerin SL (ED/IMG/CATH) 0.4 MG TABLET SUBLINGUAL (20:42)
[2020-09-09 20:58] LABS: Anion Gap 5 (5-15); BUN 10 mg/dL (7-18); BUN/Creat Ratio 11.2 RATIO (10-20); Calcium,Total 9.1 mg/dL (8.5-10.1); Chloride 108 mmol/L (98-107); Creatinine, Serum 0.89 mg/dL (0.55-1.02); EST Glomerular Filtration Rate 68 mL/min (>60); Est Glom Filt Rate - Afr Amer 82 mL/min (>60); Estimated Creatinine Clearance 48.82 ml/min; Glucose 122 mg/dL (74-106); Potassium 3.6 mmol/L (3.5-5.1); Sodium Level 141 mmol/L (136-145)
[2020-09-09 21:01] LABS: D-Dimer Quantitative (DVT/PE) 0.51 FEU/ug/m (0.27-0.49)
--- NOTE | 2020-09-09 21:51 | ED.VISSUMM ---
- ER Visit Summary Date of Service: 09/09/20 Chief Complaint: [Blood pressure and chest discomfort] History of Present Illness: The patient is a 65 F [presents to the emergency department with complaint of high blood pressure and chest discomfort over the last 5 days. Patient also describes a tightness in her throat that she has had for several weeks. Patient denies any radiation of the chest pressure into her arm or neck or jaw. She denies any exertional symptoms. Patient denies recent travel or surgery. No history of PE or DVT. She has no heart history. She denies any infectious symptoms of fever or cough. No COVID-19 exposures known. Patient has history of hypertension states that normally her blood pressure runs in the 120s over 60s. Lately her blood pressures been running in the 150s and 160s.] Physical Examination: [HEENT-PERRLA, EOMI. Cranial nerves II through XII grossly intact. TMs clear. Mucous membranes moist. No adenopathy. Cardiovascular-regular rate and rhythm without murmur or ectopy Lungs-clear to auscultation, chest wall stable without crepitus or subcu emphysema Abdomen-normoactive bowel sounds, soft, nontender, no rebound or rigidity, no peritoneal signs. Extremities-intact ?4, normal range of motion, normal pulses, atraumatic] Test Results: [EKG obtained arrival shows sinus rhythm with a ventricular rate of [address] changes noted in leads V3 through V6 with flipped T waves. When compared with prior EKG from 2012 these changes appear to be chronic. CBC with differential was normal. Chemistries unremarkable. Troponin less than 0.015. D-dimer was 0.51. Chest x-ray was normal. Patient's heart score was a 4.] Emergency Department Course and Treatment: [IV line established on arrival. 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 Patient received aspirin and was given sublingual nitroglycerin which resolved her pain.] Treatment Plan: [Admit for further work-up and evaluation of her chest pain] Disposition: [Admit] Impression: [Chest pain-rule out acute coronary syndrome] This note was generated with [email or web address] dictation software. It may contain incorrect words, spelling, and punctuation that were not noted in review of the chart prior to signing ED Disposition - Plan for ED Patient: Referrals: Tatiana Cooper MD [Primary Care Provider] -
--- NOTE | 2020-09-09 22:30 | EKG12_ITS ---
Test Reason : ADM EKG Blood Pressure : / mmHG Vent. Rate : 065 BPM Atrial Rate : 065 BPM P-R Int : 142 ms QRS Dur : 086 ms QT Int : 394 ms P-R-T Axes : -17 046 134 degrees QTc Int : 409 ms Normal sinus rhythm T wave abnormality, consider anterolateral ischemia Abnormal ECG Confirmed by CLARE TAVERAS, SCOTT ([id number]), editor magazine EDIN SONG ([id number]) on 09/14/2020 10:10:35 AM Referred By: ABRAM Confirmed By:SCOTT SPARKS MD
--- NOTE | 2020-09-09 23:03 | HP.PCM_ITS ---
Problem List (1) Chest pain at rest Status: Acute (2) Hypertension Status: Chronic (3) History of chest pain Status: Chronic History of Present Illness Date of Admission: 09/09/20 Chief Complaint: Chest Pain The patient is a 65 year old F with a significant history of hypertension who presents to the emergency department with left-sided chest pain. She describes her pain as a pressure. The pain is episodic. The pain radiated into her throat. He describes her pain as 7 out of 10 in severity. She denies any aggravating or ameliorating factors to the pain. She was given 1 nitroglycerin emergency department which took her pain away. Her pain started about 15 minutes prior to presentation. She was sitting and watching television when the pain started. Also she reported that her blood pressure has been high since 5 days ago. When she her chest pressure occurred she checked her blood pressure and her blood pressure was 171/80. Past Medical History Past Medical History (Chronic Problems): Chronic Problems Hypertension (Chronic) History of chest pain (Chronic) Allergies trazodone Adverse Reaction (Verified 09/09/20 20:10) Itching Home Medications: Ambulatory Orders Medication Instructions Recorded Losartan Potassium 50 mg PO DAILY 01/01/20 Losartan Potassium [Cozaar] 25 mg PO QHS 09/09/20 Surgical History: tonsillectomy Smoking Status: Never smoker - *Family History Maternal History Items: Heart Disease, Hypertension Paternal History Items: Heart Disease Review of Systems Constitutional: Denies: Chills, Fever, Weight Change HEENT: Denies: Head Aches, Sinus Congestion, Sinus Drainage Cardiovascular: Reports: Chest Pain. Denies: Palpitations Respiratory: Denies: Cough, Shortness of breath at rest, Sputum production Gastrointestinal: Denies: Abdominal Pain, Nausea, Vomiting Genitourinary: Denies: Dysuria Musculoskeletal: Denies: Joint Pain, Joint Tenderness Skin: Denies: Rash, Wounds Neurological: Denies: Numbness, Tingling, Focal weakness Psychiatric: Denies: Anxiety, Depression, Homicidal Ideations, Suicidal Ideations Hematologic/ Lymphatic: Denies: Easy Bruising, Easy Bleeding VTE Information - Inpt Only VTE Present on Admission: No VTE Mechan Device Prophylaxis: SCD's VTE Pharm Prophylaxis ordered?: No Patient Problems: Active and Suspected Problems Chest pain at rest (Acute) - Physical Exam Vitals/I&O's: Vital Signs Temp Pulse Resp BP Pulse Ox 97.8 F 67 18 133/84 H 100 09/09/20 22:37 09/09/20 22:37 09/09/20 22:37 09/09/20 22:37 09/09/20 22:37 Oxygen Delivery Method Room Air Weight: 89 kg Body Mass Index (BMI) 37.0 Intake and Output for Last 24 Hours 09/07/20 09/08/20 09/09/20 23:59 23:59 23:59 Intake Total 330 / 330 Balance 330 / 330 General: Alert, Oriented x3, Cooperative HEENT: Atraumatic, PERRLA, EOMI, Normocephalic Neck: Supple, No JVD, Negative Carotid Bruits Lungs: Clear to auscultation, Normal air movement Cardiovascular: Regular rate, Normal S1, Normal S2, No murmurs Abdomen: Bowel Sounds Present, Soft, Non Tender Extremities: No edema, Capillary Refill Less than 3 Seconds Skin: No rashes, No breakdown Musculoskeletal: No Tenderness to Palpation of Joints or Extremities Neurological: Cranial nerves II-XII grossly intact Psych/Mental Status: Normal Affect, Appropriate Laboratory Results 09/09/20 20:30: WBC 9.2, RBC 5.18, Hgb 13.9, Hct 43.7, MCV 84.4, MCH 26.8 L, MCHC 31.8 L, RDW Std Deviation 40.9, RDW Coeff of Julia 13.2, Plt Count 327, MPV 10.5, Immature Gran % (Auto) 0.700, Neut % (Auto) 48.2, Lymph % (Auto) 40.4, [place] % (Auto) 6.8, Eos % (Auto) 3.4, Baso % (Auto) 0.5, Absolute Neuts (auto) 4.4, Absolute Lymphs (auto) 3.70, Nucleated RBC % 0 09/09/20 20:30: D-Dimer Quant (PE/DVT) 0.51 H* 09/09/20 20:30: Sodium 141, Potassium 3.6, Chloride 108 H, Carbon Dioxide 28.0, Anion Gap 5, BUN 10, Creatinine 0.89, Estim Creat Clear Calc 48.82, Est GFR (MDRD) Af Amer 82, Est GFR (MDRD) Non-Af 68, BUN/Creatinine Ratio 11.2, Glucose 122 H, Calcium 9.1, Troponin I < 0.015 Current Medications Acetaminophen (Acetaminophen 325 Mg Tablet) 650 mg PO Q6H PRN PRN PRN Reason: Pain Score 1-10/Temp > 100.7 F Aspirin (Aspirin E.C. 81 Mg Tablet) 81 mg PO DAILY@0800 [facility] Hydralazine HCl (Hydralazine 20 Mg/Ml Vial) 5 mg IV Q4H PRN PRN PRN Reason: SBP > 160 Sodium Chloride () 250 mls @ 15 mls/hr IV .[id number] PRN PRN Reason: Saline Flush Sodium Chloride () 250 mls @ 15 mls/hr IV .[id number] PRN PRN Reason: Additional IVPB Infusion Losartan Potassium (Losartan Potassium 25 Mg Tablet) 25 mg PO QHS [facility] Last Admin: 09/09/20 22:44 Dose: Not Given Documented by: Losartan Potassium (Losartan Potassium 50 Mg Tablet) 50 mg PO DAILY [facility] Morphine Sulfate (Morphine 2 Mg/Ml Syringe) 2 mg IV Q3H PRN PRN PRN Reason: Pain Score 6-10 Nitroglycerin (Nitroglycerin (Inpatient Use) 0.4 Mg Tab.Subl) 0.4 mg SUBLINGUAL Q5M PRN PRN Reason: CHEST PAIN Ondansetron HCl (Ondansetron 4 Mg/2 Ml Vial) 4 mg IV Q8H PRN PRN PRN Reason: NAUSEA/VOMITING Senna/Docusate Sodium (Senna/Docusate Sodium 1 Tablet) 2 tablet PO BID PRN PRN PRN Reason: Constipation Sodium Chloride (0.9% Saline Lock 10 Ml Syringe) 10 - 40 ml IV UD PRN PRN Reason: SALINE FLUSH Assessment/Plan All Active Problems Chest pain at rest (Acute) Chest pain Place on a monitored bed at PCU Actual CXR image was independently visualized. No acute cardiopulmonary process was noted. Actual EKG tracing was independently visualized. EKG tracing showed sinus rhythm with T wave inversion in V2 to V6. Old records were reviewed. EKG in November 2011 also shows the same T wave inversions. Aspirin 324 mg at emergency department. SL NTG 0.4 mg prn as needed for chest pain ordered Morphine as needed for pain ordered We will check lipid panel. Initial troponin was negative Serial cardiac enzymes ordered Stat EKG as needed for chest pain Treadmill stress test in the AM if the cardiac enzymes are negative Hypertension Blood pressure is now within goal. Losartan continued Trend blood pressure and adjust blood pressure medications as necessary. DVT prophylaxis SCD while planning for cardiac work up for chest pain OBSV E&M: 56614 Initial observation care L2
[2020-09-10 02:57] VITALS: PULSE 69
[2020-09-10 03:44] LABS: Anion Gap 5 (5-15); BUN 11 mg/dL (7-18); BUN/Creat Ratio 16.4 RATIO (10-20); Chloride 108 mmol/L (98-107); Cholesterol 130 mg/dL (200); Creatinine, Serum 0.67 mg/dL (0.55-1.02); EST Glomerular Filtration Rate 94 mL/min (>60); Est Glom Filt Rate - Afr Amer 114 mL/min (>60); Estimated Creatinine Clearance 64.85 ml/min; Glucose 117 mg/dL (74-106); High Density Lipoprotein 43 mg/dL; Potassium 3.5 mmol/L (3.5-5.1); Sodium Level 139 mmol/L (136-145); Triglycerides 88 mg/dL; Very Low Density Lipoprotein 18 mg/dL (5-40)
[2020-09-10 05:20] VITALS: BP 119/72; PULSE 74; RESP 18; TEMP 36.6; O2SAT 99
[2020-09-10] MEDS: Aspirin E.C. 81 MG Tablet PO (05:25)
[2020-09-10] MEDS: Losartan Potassium 50 MG Tablet PO (05:25)
[2020-09-10 07:31] VITALS: O2SAT 94
[2020-09-10 07:46] VITALS: PULSE 76
[2020-09-10 07:48] VITALS: BP 131/83; PULSE 71; RESP 18; TEMP 36.4; O2SAT 98
--- NOTE | 2020-09-10 12:25 | STRESSREP ---
Stress Test Report Exercise myocardial perfusion stress test. 65-year-old lady with a history of chest pain. Stress protocol: Resting EKG demonstrates normal sinus rhythm with a rate of 66 bpm normal intervals are noted resting blood pressure is 124/62 mmHg. The patient exercised according to regular Roderick protocol for a total duration of 5 minutes and 36 seconds. The maximum heart rate attained was 162 bpm which was 103% of maximum predicted heart rate the maximum workload was 7 metabolic equivalents. At rest there were no ST or T wave changes noted suggest ischemia at peak exercise upsloping ST changes were noted with no meet the criteria for ischemia. No clinical angina was noted T wave inversions were noted in the inferior lateral leads during recovery. No symptoms were noted the test was terminated due to dyspnea. The peak blood pressure of 202/64 mmHg suggesting hypertensive response to exercise per Myocardial perfusion protocol. 12.0 mCi of technetium 99 sestamibi was injected at rest. Patient exercised according to regular Roderick protocol peak exercise 36.0 mCi of technetium 99 sestamibi was injected stress images were obtained stress and rest images were reconstructed and compared in the short axis vertical long horizontal long axis. Gated images were also obtained Perfusion SPECT analysis: Review of the stress images demonstrate normal uptake of tracer noted in all areas of myocardium the resting images similar demonstrate normal uptake of tracer noted in all areas of myocardium. No reversibility is noted suggest ischemia no previous infarct is noted. Gated SPECT analysis: The gated ejection fraction is 65%. Conclusion: Normal exercise myocardial perfusion stress test at a moderate workload. Preserved ejection fraction.
--- NOTE | 2020-09-10 12:43 | DCINST_ITS ---
- Discharge Diagnoses Current Active Problems: Current Active and Chronic Problems Hypertension (Chronic) Chest pain at rest (Acute) History of chest pain (Chronic) You will use the following diet at home:: Cardiac Your food should be the consistency of: Regular Your liquids should be the consistency of: Regular/Thin Discharge Activity: Return to Normal Activity Allergies/Adverse Reactions: Allergies amlodipine Adverse Reaction (Verified 09/10/20 10:15) Swelling trazodone Adverse Reaction (Verified 09/09/20 20:10) Itching Medications to take at Discharge Acetaminophen [Tylenol Tablet] 650 mg PO Q6H PRN PRN tablet 09/10/20 hydroCHLOROthiazide [Hydrochlorothiazide] 12.5 mg PO DAILY #30 cap 09/10/20 The following prescriptions were given: hydroCHLOROthiazide [Hydrochlorothiazide] 12.5 mg PO DAILY #30 cap Transmission Status: Pending to [facility] [facility] Primary Care Physician: Tatiana Cooper MD [Primary Care Provider] - Please follow up with your Primary Care Physician in: 1-2 weeks Test Results: Test results from this visit will be discussed in further detail at your follow- up appointment, if applicable. Proposed Discharge Date: 09/10/20
--- NOTE | 2020-09-10 12:43 | DS.PCM_ITS ---
<Devendra Yoder - Last Filed: 09/10/20 12:43> Discharge Date and Diagnosis - Problem List Patient Problems: Active and Suspected Problems Chest pain at rest (Acute) Date of Admission: 09/09/20 Date of Discharge: 09/10/20 - Primary Discharge Diagnosis Acute Problems: Active Problems Chest pain - musculoskeletal HTN, cough, losartan changed to HCTZ - Secondary Discharge Diagnosis Chronic Problems: Chronic Problems Hypertension (Chronic) History of chest pain (Chronic) Hospital Course and Treatment Imaging Results: 09/10/20 05:55 Nuclear Stress Test - Treadmil [NM] AM (NON MEDS) Gated SPECT analysis: The gated ejection fraction is 65%. Conclusion: Normal exercise myocardial perfusion stress test at a moderate workload. Preserved ejection fraction. RAD/Chest 1 View (Portable) IMPRESSION: Normal x-ray examination of the chest. Operations: None Procedures: None, Stress test Summary of Care Provided: Hospital Course: The patient is a 65 year old F with pmhx of htn who presented to the ER with c/o left sided chest pain that was pressure like and coming and going. She had ratiation into the throat. This occurred intermittently. The latest episode was while sitting watching tv. She received a nitro in the ER which provided some relief. She had EKG with no acute changes, negative troponin and negative CXR. Age adjusted D dimer was negative. The patient was admitted to PCU for CP workup. Repeat EKG and troponin were negative. She underwent a stress test the following morning which was negative. She complained of a cough and it was suspected it may be due to her losartan, so this was changed to HCTZ. She was discharged home in stable condition. She will need follow up with her pcp in 1-2 weeks. This patient was seen by Devendra Yoder PA-C under the supervision of Dr. Burgess [] Patient Problems: Active and Suspected Problems Chest pain at rest (Acute) - Physical Exam Vitals/I&O's: Vital Signs Temp Pulse Resp BP Pulse Ox 97.6 F L 71 18 131/83 H 98 09/10/20 07:48 09/10/20 07:48 09/10/20 07:48 09/10/20 07:48 09/10/20 07:48 Oxygen Delivery Method Room Air Weight: 196 lb 3.382 oz Body Mass Index (BMI) 37.0 Intake and Output for Last 24 Hours 09/08/20 09/09/20 09/10/20 23:59 23:59 23:59 Intake Total 330 / 330 Balance 330 / 330 General: Alert, Oriented x3, Cooperative HEENT: Atraumatic, PERRLA, EOMI, Normocephalic Neck: Supple, No JVD, Negative Carotid Bruits Lungs: Clear to auscultation, Normal air movement Cardiovascular: Regular rate, No murmurs Abdomen: Bowel Sounds Present, Soft, Non Tender Extremities: No edema, Capillary Refill Less than 3 Seconds Skin: No rashes, No breakdown Musculoskeletal: No Tenderness to Palpation of Joints or Extremities Neurological: Cranial nerves II-XII grossly intact Psych/Mental Status: Normal Affect, Appropriate, Alert and oriented to time, place, person, mood and affect Laboratory Results 09/09/20 20:30: WBC 9.2, RBC 5.18, Hgb 13.9, Hct 43.7, MCV 84.4, MCH 26.8 L, MCHC 31.8 L, RDW Std Deviation 40.9, RDW Coeff of Julia 13.2, Plt Count 327, MPV 10.5, Immature Gran % (Auto) 0.700, Neut % (Auto) 48.2, Lymph % (Auto) 40.4, [place] % (Auto) 6.8, Eos % (Auto) 3.4, Baso % (Auto) 0.5, Absolute Neuts (auto) 4.4, Absolute Lymphs (auto) 3.70, Nucleated RBC % 0 09/09/20 20:30: D-Dimer Quant (PE/DVT) 0.51 H* 09/09/20 20:30: Sodium 141, Potassium 3.6, Chloride 108 H, Carbon Dioxide 28.0, Anion Gap 5, BUN 10, Creatinine 0.89, Estim Creat Clear Calc 48.82, Est GFR (MDRD) Af Amer 82, Est GFR (MDRD) Non-Af 68, BUN/Creatinine Ratio 11.2, Glucose 122 H, Calcium 9.1, Troponin I < 0.015 09/09/20 23:57: Troponin I < 0.015 09/10/20 03:15: Sodium 139, Potassium 3.5, Chloride 108 H, Carbon Dioxide 26.0, Anion Gap 5, BUN 11, Creatinine 0.67, Estim Creat Clear Calc 64.85, Est GFR (MDRD) Af Amer 114, Est GFR (MDRD) Non-Af 94, BUN/Creatinine Ratio 16.4, Glucose 117 H, Calcium 9.0, Triglycerides 88, Cholesterol 130, LDL Cholesterol 69, VLDL Cholesterol 18, HDL Cholesterol 43 09/10/20 03:15: Troponin I < 0.015 Current Medications Acetaminophen (Acetaminophen 325 Mg Tablet) 650 mg PO Q6H PRN PRN PRN Reason: Pain Score 1-10/Temp > 100.7 F Aspirin (Aspirin E.C. 81 Mg Tablet) 81 mg PO DAILY@0800 [facility] Last Admin: 09/10/20 05:25 Dose: 81 mg Documented by: Hydralazine HCl (Hydralazine 20 Mg/Ml Vial) 5 mg IV Q4H PRN PRN PRN Reason: SBP > 160 Hydrochlorothiazide (Hydrochlorothiazide 12.5mg) 12.5 mg PO DAILY [facility] Sodium Chloride () 250 mls @ 15 mls/hr IV .[id number] PRN PRN Reason: Saline Flush Sodium Chloride () 250 mls @ 15 mls/hr IV .[id number] PRN PRN Reason: Additional IVPB Infusion Morphine Sulfate (Morphine 2 Mg/Ml Syringe) 2 mg IV Q3H PRN PRN PRN Reason: Pain Score 6-10 Nitroglycerin (Nitroglycerin (Inpatient Use) 0.4 Mg Tab.Subl) 0.4 mg SUBLINGUAL Q5M PRN PRN Reason: CHEST PAIN Ondansetron HCl (Ondansetron 4 Mg/2 Ml Vial) 4 mg IV Q8H PRN PRN PRN Reason: NAUSEA/VOMITING Senna/Docusate Sodium (Senna/Docusate Sodium 1 Tablet) 2 tablet PO BID PRN PRN PRN Reason: Constipation Sodium Chloride (0.9% Saline Lock 10 Ml Syringe) 10 - 40 ml IV UD PRN PRN Reason: SALINE FLUSH Discharge Diet: Low fat/ Low Cholesterol, 2000 mg Sodium Diet Discharge Activity: Return to Normal Activity Home Medications: Medications to take at Discharge Acetaminophen [Tylenol Tablet] 650 mg PO Q6H PRN PRN tab 09/10/20 hydroCHLOROthiazide [Hydrochlorothiazide] 12.5 mg PO DAILY #30 cap 09/10/20 Following Prescriptions Were Given to Patient: hydroCHLOROthiazide [Hydrochlorothiazide] 12.5 mg PO DAILY #30 cap Transmission Status: Received by [facility]-[address] [facility] Primary Care Physician: Tatiana Cooper MD [Primary Care Provider] - Please follow up with your Primary Care Physician in: 1-2 weeks Disposition: Home Minutes spent on discharge:: 35 Patient Condition:: Stable Medical Necessity - Tobacco Use Smoking Status: Never smoker Meaningful Use Info Meaningful Use Diagnoses (Choose all that apply): None applicable <Ayush Burgess - Last Filed: 09/10/20 13:53> Discharge Date and Diagnosis - Primary Discharge Diagnosis Acute Problems: Active Problems Chest pain at rest (Acute) - Secondary Discharge Diagnosis Chronic Problems: Chronic Problems Hypertension (Chronic) History of chest pain (Chronic) Hospital Course and Treatment Imaging Results: 09/10/20 05:55 Nuclear Stress Test - Treadmil [NM] AM (NON MEDS) Operations: None Procedures: None, Stress test Summary of Care Provided: Patient seen and examined independently. Data reviewed. I agree with the above note by the physician assistant store manager trainee. The patient is a 65 year old F presents with chest pain more specific chest pressure. Patient stated that her blood pressure was high in the 170s. Presented to the emergency room for further cardiac evaluation including stress test. All of which were negative. Patient very concerned about her blood pressure. I reviewed her blood pressure while she was here with her and she had systolics into the 150s but for the most part she was in the 1 teens or 130s. Stated that when change anything in regards to her medications. Then she was asking about her cough which has been chronic over several months. Reviewed her medications and saw that she is on losartan, which can cause cough and advised stopping that and see how she would do. She was in agreement to that. I did suggest amlodipine but she later stated that she gets swelling with amlodipine so we will try hydrochlorothiazide. I told her in regards to her cough that be a matter of just removing medications for several weeks and if that does not improve her cough then would be reasonable to assume that the losartan was not the culprit and that may look to consider PPI therapy for possible reflux. Patient does not feel that she has reflux but told her this this possibly could be something that is relatively asymptomatic with the exception of a cough and to try PPI for several weeks and if that improve then to look for other possibilities such as asthma. Patient stated that she has been ruled out for asthma in the past. [] - Physical Exam Vitals/I&O's: Vital Signs Temp Pulse Resp BP Pulse Ox 36.4 C L 74 18 142/80 H 97 09/10/20 13:47 09/10/20 13:47 09/10/20 13:47 09/10/20 13:47 09/10/20 13:47 Oxygen Delivery Method Room Air Weight: 89 kg Body Mass Index (BMI) 37.0 Intake and Output for Last 24 Hours 09/08/20 09/09/20 09/10/20 23:59 23:59 23:59 Intake Total 330 / 330 Balance 330 / 330 General: Alert, Cooperative HEENT: Atraumatic, Normocephalic Lungs: Clear to auscultation, Normal air movement, No rhonchi, No wheeze Cardiovascular: Regular rate, Regular Rhythm, Normal S1, Normal S2, No murmurs Abdomen: Bowel Sounds Present, Soft, Non Tender, Non-Distended Extremities: No edema, No Calf Tenderness Skin: No rashes, No breakdown Psych/Mental Status: Normal Affect, Appropriate Laboratory Results 09/09/20 20:30: WBC 9.2, RBC 5.18, Hgb 13.9, Hct 43.7, MCV 84.4, MCH 26.8 L, MCHC 31.8 L, RDW Std Deviation 40.9, RDW Coeff of Julia 13.2, Plt Count 327, MPV 10.5, Immature Gran % (Auto) 0.700, Neut % (Auto) 48.2, Lymph % (Auto) 40.4, Montgomery % (Auto) 6.8, Eos % (Auto) 3.4, Baso % (Auto) 0.5, Absolute Neuts (auto) 4.4, Absolute Lymphs (auto) 3.70, Nucleated RBC % 0 09/09/20 20:30: D-Dimer Quant (PE/DVT) 0.51 H* 09/09/20 20:30: Sodium 141, Potassium 3.6, Chloride 108 H, Carbon Dioxide 28.0, Anion Gap 5, BUN 10, Creatinine 0.89, Estim Creat Clear Calc 48.82, Est GFR (MDRD) Af Amer 82, Est GFR (MDRD) Non-Af 68, BUN/Creatinine Ratio 11.2, Glucose 122 H, Calcium 9.1, Troponin I < 0.015 09/09/20 23:57: Troponin I < 0.015 09/10/20 03:15: Sodium 139, Potassium 3.5, Chloride 108 H, Carbon Dioxide 26.0, Anion Gap 5, BUN 11, Creatinine 0.67, Estim Creat Clear Calc 64.85, Est GFR (MDRD) Af Amer 114, Est GFR (MDRD) Non-Af 94, BUN/Creatinine Ratio 16.4, Glucose 117 H, Calcium 9.0, Triglycerides 88, Cholesterol 130, LDL Cholesterol 69, VLDL Cholesterol 18, HDL Cholesterol 43 09/10/20 03:15: Troponin I < 0.015 Current Medications Acetaminophen (Acetaminophen 325 Mg Tablet) 650 mg PO Q6H PRN PRN PRN Reason: Pain Score 1-10/Temp > 100.7 F Last Admin: 09/10/20 13:43 Dose: 650 mg Documented by: Aspirin (Aspirin E.C. 81 Mg Tablet) 81 mg PO DAILY@0800 [facility] Last Admin: 09/10/20 05:25 Dose: 81 mg Documented by: Hydralazine HCl (Hydralazine 20 Mg/Ml Vial) 5 mg IV Q4H PRN PRN PRN Reason: SBP > 160 Hydrochlorothiazide (Hydrochlorothiazide 12.5mg) 12.5 mg PO DAILY [facility] Sodium Chloride () 250 mls @ 15 mls/hr IV .[id number] PRN PRN Reason: Saline Flush Sodium Chloride () 250 mls @ 15 mls/hr IV .[id number] PRN PRN Reason: Additional IVPB Infusion Morphine Sulfate (Morphine 2 Mg/Ml Syringe) 2 mg IV Q3H PRN PRN PRN Reason: Pain Score 6-10 Nitroglycerin (Nitroglycerin (Inpatient Use) 0.4 Mg Tab.Subl) 0.4 mg SUBLINGUAL Q5M PRN PRN Reason: CHEST PAIN Ondansetron HCl (Ondansetron 4 Mg/2 Ml Vial) 4 mg IV Q8H PRN PRN PRN Reason: NAUSEA/VOMITING Senna/Docusate Sodium (Senna/Docusate Sodium 1 Tablet) 2 tablet PO BID PRN PRN PRN Reason: Constipation Sodium Chloride (0.9% Saline Lock 10 Ml Syringe) 10 - 40 ml IV UD PRN PRN Reason: SALINE FLUSH Discharge Diet: Low fat/ Low Cholesterol, 2000 mg Sodium Diet Discharge Activity: Return to Normal Activity Meaningful Use Info Meaningful Use Diagnoses (Choose all that apply): None applicable OBSV E&M: 74360 Observation care discharge
[2020-09-10] MEDS: Acetaminophen 325 MG Tablet 650 MG PO (13:43)
[2020-09-10 13:47] VITALS: BP 142/80; PULSE 74; RESP 18; TEMP 36.4; O2SAT 97
--- NOTE | 2020-09-10 15:22 | NURSING ---
Patient discharged home. NADN at this time. Patient verbalized understanding of discharge instructions.
== END 2020-09-10 12:43 | disposition home or self-care (01) ==
LOC: ED 20:36 → PCU 22:01
PROVIDERS: Admitting Provider Hospitalist; Emergency Provider Emergency Medicine; PCP Internal Medicine
DX: R07.89 Other chest pain (principal); I10 Essential (primary) hypertension; Z79.899 Other long term (current) drug therapy; R94.31 Abnormal electrocardiogram [ECG] [EKG]
CPT/HCPCS: 36415; 71045; 78452; 80048; 80061; 84484; 85025; 85379; 93005; 93017; 96360; 96361; 99218; 99285; A9500; J7030; A4216; G0378

== ENCOUNTER 2021-01-29 18:12 | Emergency (ER) | payer MEDICAID, SELFPAY ==
[2020-09-09 22:35] VITALS: BMI 37.0
[2021-01-29 18:13] VITALS: BP 169/74; PULSE 77; RESP 16; TEMP 36.9; O2SAT 96; BMI 40.8
--- NOTE | 2021-01-29 18:30 | EKG12_ITS ---
Test Reason : CP Blood Pressure : / mmHG Vent. Rate : 097 BPM Atrial Rate : 097 BPM P-R Int : 134 ms QRS Dur : 084 ms QT Int : 318 ms P-R-T Axes : 079 065 132 degrees QTc Int : 403 ms Normal sinus rhythm Nonspecific ST and T wave abnormality Abnormal ECG Confirmed by PHYLLIS TAVERAS, KALI ([id number]), associate editor EDIN SONG ([id number]) on 01/31/2021 8:39:59 AM Referred By: YANG Confirmed By:REDD FERGUSON MD
--- NOTE | 2021-01-29 18:30 | CT_ITS ---
STUDY: CT BRAIN WITHOUT CONTRAST REASON FOR EXAM: Female, 65 years old patient with headache. RADIATION DOSAGE (If Supplied By Facility): CTDIvol = ( 44.99 ) mGy, DLP = ( 779.24 ) mGycm TECHNIQUE: Transaxial CT imaging of the brain was performed without administration of intravenous contrast material. Multiplanar reformations are submitted for interpretation. Individualized dose optimization techniques were used for this CT. COMPARISON: No relevant priors. FINDINGS: Normal soft tissue structures. Normal calvarium. Normal size ventricles and extra-axial spaces for the patient''s age. Normal white matter tracts of the cerebral hemispheres. Normal basal ganglia and thalami. Normal brainstem. Normal cerebellum. There is no intracranial hemorrhage. There are no findings of an acute ischemic infarction. Normal visualized paranasal sinuses. CT/Brain/Head without Contrast IMPRESSION: No CT evidence of acute abnormality. Electronically Signed: Aixa Batista MD at 19:39 EDT , Service support ,
[2021-01-29 18:37] LABS: Absolute Lymphocyte Count 4.89 X10^3/uL (0.83-4.51); Absolute Neutrophil Count 4.3 X10^3/uL (2.0-7.7); Basophil# 0.06 X10^3/uL; Basophil% 0.6 % (0-1); Eosinophil# 0.36 X10^3/uL; Eosinophils% 3.4 % (0-5); Hematocrit 44.9 % (37-47); Hemoglobin 14.5 g/dL (12.0-15.0); Lymphocyte # 4.89 X10^3/ul (0.83-4.51); Lymphocyte % 46.8 % (19-41); Mean Corp Hgb Conc 32.3 g/dL (32-36); Mean Corpuscular Hgb 26.5 pg (27.0-32.0); Mean Corpuscular Volume 82.1 fL (81-99); Mean Platelet Vol. 11.2 fl (6.2-12.0); Monocyte# 0.82 X10^3/uL; Monocyte% 7.8 % (0-10); NRBC Flagged by Analyzer 0 % (0-5); Neutrophil # 4.29 X10^3/uL (2.7-7.7); Neutrophil % 41.1 % (47-70); Platelet Count 390 K/mm3 (150-450); RBC Distribution Width CV 13.9 % (11.6-14.6); RBC Distribution Width SD 41.4 fl (35.1-43.9); Red Blood Count 5.47 M/mm3 (4.2-5.4); White Blood Count 10.5 K/mm3 (4.4-11.0)
--- NOTE | 2021-01-29 18:37 | RAD_ITS ---
STUDY: X-RAY CHEST REASON FOR EXAM: Female, 65 years old patient with chest pain. TECHNIQUE: Single AP portable view of the chest. COMPARISON: 09/09/2020. FINDINGS: Cardiac monitoring leads are present. The lungs are expanded. There is perihilar interstitial thickening and peribronchial cuffing some of which appears to have been present on the previous study as well. There is no demonstrated pleural abnormality. There is borderline cardiomegaly. Normal mediastinum and khushboo. There is prominence of the pulmonary hilar arteries with peripheral pulmonary vascular congestion. Normal visualized aortic arch and descending thoracic aorta. Normal visualized thoracic spine. Normal visualized ribs, clavicles, and shoulders. There is no demonstrated abnormality of the visualized soft tissue structures of the upper abdomen. RAD/Chest 1 View (Portable) IMPRESSION: No radiographic evidence of acute cardiopulmonary disease. Electronically Signed: Aixa Batista MD at 19:35 EDT , Service support ,
[2021-01-29] MEDS: Aspirin 81 MG TAB.CHEW 324 MG PO (18:52)
[2021-01-29 19:03] LABS: Anion Gap 7 (5-15); BUN 16 mg/dL (7-18); Calcium,Total 9.7 mg/dL (8.5-10.1); Chloride 102 mmol/L (98-107); Creatinine, Serum 0.94 mg/dL (0.55-1.02); EST Glomerular Filtration Rate 64 mL/min (>60); Est Glom Filt Rate - Afr Amer 77 mL/min (>60); Estimated Creatinine Clearance 46.23 ml/min; Glucose 113 mg/dL (74-106); Potassium 4.3 mmol/L (3.5-5.1); Sodium Level 137 mmol/L (136-145)
[2021-01-29 19:12] VITALS: BP 148/83; PULSE 83; RESP 17; O2SAT 97
--- NOTE | 2021-01-29 19:51 | ED.DCSUM_ITS ---
- ER Visit Summary Date of Service: 01/29/21 Chief Complaint: Chest pain History of Present Illness: The patient is a [address] Cooper. Ports that she has chest pain again 2 days ago. Is continuous pressure the 7 of 10 at worst and 6 out of 10 currently. Is worsened by movement, sitting up or jeannine ding up. Is relieved by sleeping. She denies any associated nausea, vomiting, diaphoresis, shortness of breath. She denies any radiation. Patient denies any chest pain or change in dyspnea exertion the past month. She reports she had similar chest pain with hypertension. States that her blood pressure is usually 120/65. Yesterday it was 160/85. She states that she has a throbbing frontal headache that 7 of 10 severity. She does have a history of similar headaches. She also on review of systems complains of 2 episodes of diarrhea today. Physical Examination: Vitals: Stable. Afebrile. General: Well-nourished and well-developed. Head: Normocephalic atraumatic. Neck: Supple, no lymphadenopathy. No JVD. Nontender. Cardiovascular: Regular rate and rhythm. No murmurs. Respiratory: No respiratory distress. Clear to auscultation bilaterally. Abdominal: Soft, nontender, nondistended, normal bowel sounds. No guarding, rebound, or peritoneal signs. Back: Nontender. Extremities: Nontender, no edema. Skin: Normal color, no rash. Neurologic: Alert and oriented ?3. Cranial nerves II through XII are intact. Normal strength and sensation. Psych: Normal affect. Test Results: EKG is sinus at [address] changes. There are T wave inversions in leads V4 to V6 as well as 1 and aVL. However, this is unchanged from September 09, 2020. Troponin is negative despite 2 days of constant pain. Chem-7 shows a glucose 113. CBC shows 7 neutrophils of 41 with lymphocytes 47. Clinical Impression(s) from Imaging Studies Brain CT 01/29/21 18:30 IMPRESSION: No CT evidence of acute abnormality. Electronically Signed: Aixa Batista MD at 19:39 EDT , Service support , Chest X-Ray 01/29/21 18:37 IMPRESSION: No radiographic evidence of acute cardiopulmonary disease. Electronically Signed: Aixa Batista MD at 19:35 EDT , Service support , Emergency Department Course and Treatment: Patient was given aspirin p.o. She is resting comfortably. Her blood pressure decreased to 144/78 without any treatment. Treatment Plan: Patient's pain is very atypical. She had a stress test in August that was normal. I do not think that this is ischemic in nature. She assures me that it is because her blood pressure is high. However, I do not think that changing her blood pressure medications with pressure 144/78 is in her best interest. She will be discharged instructions to follow-up with her primary care physician in 2 days for another exam. Return to the emergency department for any worsening symptoms. Disposition: To home in improved and stable condition. Impression: 1. Atypical chest pain. 2. Hypertension. This note was generated with [employer] dictation software. It may contain incorrect words, spelling, and punctuation that were not noted in review of the chart prior to signing ED Disposition - Plan for ED Patient: Disposition: Home or Assisted Living Instructions: ED Chest Pain, Uncertain Cause Referrals: Tatiana Cooper MD [Primary Care Provider] - 2 Days
[2021-01-29 20:38] VITALS: BP 151/82; PULSE 83; RESP 19; O2SAT 97
== END 2021-01-29 20:39 | disposition home or self-care (01) ==
LOC: ED 18:55
PROVIDERS: Emergency Provider Emergency Medicine; PCP Internal Medicine
DX: R07.89 Other chest pain (principal); I10 Essential (primary) hypertension; R51.9 Headache, unspecified; R19.7 Diarrhea, unspecified
CPT/HCPCS: 70450; 71045; 80048; 84484; 85025; 93005; 99284; J7030; A4216

== ENCOUNTER 2021-07-22 00:46 | Emergency (ER) | payer MEDICAID, SELFPAY ==
[2021-07-22 00:47] VITALS: PULSE 62; RESP 18; TEMP 36.8; O2SAT 99; BMI 36.9
--- NOTE | 2021-07-22 01:11 | EKG12_ITS ---
Test Reason : CHEST DISCOMFORT Blood Pressure : / mmHG Vent. Rate : 058 BPM Atrial Rate : 058 BPM P-R Int : 152 ms QRS Dur : 082 ms QT Int : 404 ms P-R-T Axes : 064 043 054 degrees QTc Int : 396 ms Sinus bradycardia Nonspecific T wave abnormality Abnormal ECG Confirmed by PHYLLIS TAVERAS, KALI ([id number]), technical editor EDIN SONG ([id number]) on 07/24/2021 12:48:13 PM Referred By: YANG Confirmed By:REDD FERGUSON MD
--- NOTE | 2021-07-22 01:12 | RAD_ITS ---
STUDY: X-RAY CHEST REASON FOR EXAM: Female, 66 years old. Cough and shortness of breath TECHNIQUE: Single AP portable view of the chest. COMPARISON: 01/29/2021 FINDINGS: No confluent airspace infiltrate. There is no demonstrated pleural abnormality. Normal size heart. Normal mediastinum and khushboo. Normal visualized pulmonary arteries. Normal visualized aortic arch and descending thoracic aorta. Normal visualized thoracic spine. Normal visualized ribs, clavicles, and shoulders. There is no demonstrated abnormality of the visualized soft tissue structures of the upper abdomen. RAD/Chest 1 View (Portable) IMPRESSION: Normal x-ray examination of the chest. Electronically Signed: Tay Espinoza MD at 2:21 EDT Tel , Service support ,
--- NOTE | 2021-07-22 01:13 | EDS_ITS ---
HPI History of Present Illness Chief Complaint: Chest Pain Informant: patient Onset/Context/Timing Onset: Weeks (1) Activity at onset: gradual and onset Timing: Continuous Quality: Positive for Pressure Location: Substernal Current Severity: Moderate Maximum Severity: Moderate Worsened By: Nothing; Not Worsened By Exertion and Breathing Relieved By: Nothing Associated Symptoms: Negative for Nausea and Vomiting Narrative Narrative: Patient presents with chest discomfort and some mild shortness of breath for the past week. She states that shortness of breath is getting worse but she states she basically gets it whenever she sits up. She does not have dyspnea with exertion, she does not have pleuritic chest discomfort, she does not have orthopnea. She is very poor historian, and has trouble answering direct questions, but is pleasant. She states that her ex- recently of Covid. She was exposed to someone who was exposed to him, but they were not symptomatic when she was around them. This was around July 11, and then within 2 or 3 days she was feeling cough, malaise, headaches, and then for the past week he has had the above symptoms. This is the first time she has been seen by healthcare provider and has not had a Covid test in that amount of time. She was fully vaccinated months ago. No history of blood clots. No leg pain or swelling. No recent long travel, immobilization, surgery, hospitalization. CVD Risk Factors: Positive for Hypertension; Negative for Diabetes, Hypercholesterolemia, Family History 1' </=55 and Smoking PE Risk Factors: Negative for Recent Travel/Surgery, Recent Immobilization, Prior DVT or PE, Cancer and OCP + Smoking + >/=35 PFSH PFSH Medical History (Updated 07/22/21 @ 02:[address] Rick Stahl MD) Hypertension Medical History no medical history Home Medications hydrochlorothiazide 12.5 mg PO DAILY #30 cap 09/10/20 [Rx Last Taken Unknown] omeprazole 40 mg PO DAILY 07/22/21 [History Last Taken Unknown] Allergy/AdvReac Type Severity Reaction Status Date / Time amlodipine AdvReac Swelling Verified 07/22/21 00:52 trazodone AdvReac Itching Verified 07/22/21 00:52 Social History Smoking Status: Never smoker ROS ROS ED Constitutional Constitutional ED: Reports headache(s) and malaise; Denies body ache(s), chills or fever(s) Eyes Eyes: Denies change in vision or diplopia ENT ENT ED: Reports sore throat; Denies rhinorrhea Cardiovascular Cardiovascular: Reports chest pain; Denies orthopnea, palpitations or paroxysmal nocturnal dyspnea Respiratory/Chest Respiratory/Chest: Reports as per HPI, cough and dyspnea; Denies dyspnea on exertion, orthopnea or paroxysmal nocturnal dyspnea Gastrointestinal Gastrointestinal: Reports abdominal pain; Denies diarrhea, nausea or vomiting Genitourinary Genitourinary ED: Denies dysuria or hematuria Musculoskeletal Musculoskeletal: Denies back pain or neck pain Integumentary Denies abscess or rash Neurologic Neurologic: Reports headache(s); Denies paresthesias or weakness Psychiatric Psychiatric: Denies anxiety or suicidal thoughts EXAM Physical Exam Const Vital Signs: 07/22/21 00:47 07/22/21 01:46 07/22/21 02:00 Temperature 98.3 F Temperature Source Temporal Pulse Rate 62 59 L 62 Respiratory Rate 18 21 H 20 H Blood Pressure 135/74 H 151/75 H Blood Pressure Mean 94 100 Pulse Ox 99 98 98 Oxygen Delivery Method Room Air Positive well nourished and well developed General Appearance ED: well developed and NAD HEENT Reports moist mucous membranes normocephalic and atraumatic Eyes PERRL and EOMs intact bilaterally Neck full ROM, supple and no JVD Resp normal respiratory effort and clear to auscultation bilaterally Cardio regular rate, regular rhythm and no murmurs Rate: Negative for tachycardic GI non-tender and non-distended Auscultation: normoactive bowel sounds Palpation: soft Back/Spine no CVA tenderness General Back: other FROM Extremity normal to inspection and no calf tenderness General Extremety ED: Negative for edema, pulses abnormal or tenderness General Extremity: Negative for edema or pulses abnormal Neuro oriented x3, CN's II-XII intact bilaterally and no sensory deficits noted Sensorium / Orientation: awake and alert Motor Exam: strength 5/5 throughout Skin no rashes or lesions noted and no wounds Heart Score History: Slightly/Non-Suspicious ECG: Nonspecific Repolarization Age: >45 - <65 years Troponin: </= Normal Limit Score: 2 MDM MDM MDM Narrative Medical decision making narrative: When corrected for age, her D-dimer is within normal limits ruling out acute pulmonary embolus as cause for symptoms right now. Her labs are unremarkable, she does not have leukopenia but certainly she could have Covid, although her rapid test is negative, she is outside of the first week of symptoms, and there is a higher false-negative rate. Therefore I recommend doing a PCR to be sure, she is comfortable with that. Her chest x-ray is negative. There is no medication for antibiotics or other treatments at this time, her oxygen saturations are excellent, and if she does have Covid, she should continue to isolate until she is improving since she currently is around the 10-day vic. She is comfortable with this overall plan. Lab Data Attestation: I reviewed the patient's lab results. Labs: Laboratory Results - last 24 hr 07/22/21 07/22/21 07/22/21 01:25 01:25 01:25 WBC 11.0 RBC 5.38 Hgb 14.1 Hct 44.2 MCV 82.2 MCH 26.2 L MCHC 31.9 L RDW Std Deviation 41.4 RDW Coeff of Julia 14.1 Plt Count 356 MPV 9.9 Immature Gran % (Auto) 0.600 Neut % (Auto) 40.7 L Lymph % (Auto) 46.4 H [place] % (Auto) 7.7 Eos % (Auto) 4.1 Baso % (Auto) 0.5 Absolute Neuts (auto) 4.5 Absolute Lymphs (auto) 5.09 H Nucleated RBC % 0 Differential Comment SCANNED D-Dimer Quant (PE/DVT) 0.53 H* Sodium 139 Potassium 3.7 Chloride 103 Carbon Dioxide 30.0 Anion Gap 6 BUN 17 Creatinine 0.85 Estim Creat Clear Calc 50.46 Est GFR (MDRD) Af Amer 86 Est GFR (MDRD) Non-Af 71 BUN/Creatinine Ratio 20.0 Glucose 120 H Lactic Acid Calcium 9.5 Total Bilirubin 0.30 AST 21 ALT 40 Alkaline Phosphatase 68 Troponin I High Sens 5 Total Protein 8.1 Albumin 3.8 Globulin 4.3 H Albumin/Globulin Ratio 0.9 07/22/21 01:25 WBC RBC Hgb Hct MCV MCH MCHC RDW Std Deviation RDW Coeff of Julia Plt Count MPV Immature Gran % (Auto) Neut % (Auto) Lymph % (Auto) [place] % (Auto) Eos % (Auto) Baso % (Auto) Absolute Neuts (auto) Absolute Lymphs (auto) Nucleated RBC % Differential Comment D-Dimer Quant (PE/DVT) Sodium Potassium Chloride Carbon Dioxide Anion Gap BUN Creatinine Estim Creat Clear Calc Est GFR (MDRD) Af Amer Est GFR (MDRD) Non-Af BUN/Creatinine Ratio Glucose Lactic Acid 0.9 Calcium Total Bilirubin AST ALT Alkaline Phosphatase Troponin I High Sens Total Protein Albumin Globulin Albumin/Globulin Ratio Radiography Diagnostic Testing: Clinical Impression(s) from Imaging Studies Chest X-Ray 07/22/21 01:12 IMPRESSION: Normal x-ray examination of the chest. Electronically Signed: Tay Espinoza MD at 2:21 EDT Tel , Service support , EKG Initial EKG: Attestation: I personally reviewed and interpreted this EKG as follows: Interpretation: No Acute Injury Pattern, Sinus Bradycardia and Non- Specific ST Changes Prior EKG tracings: available for review Prior: Unchanged Discharge Plan Triage Chief Complaint: Chest Pain ED Provider: Rick Stahl Dx/Rx/DC Orders Clinical Impression: Chest pain, unspecified, Upper respiratory tract infection Instructions: ED Chest Pain, Uncertain Cause Prescriptions: No Action hydrochlorothiazide 12.5 MG capsule 12.5 mg PO DAILY Qty: 30 RF: 0 omeprazole 40 mg Capsule,Delayed Release(Dr/Ec) 40 mg PO DAILY RF: 0 Primary Care Provider: Tatiana Cooper Referrals: Tatiana Cooper MD [Primary Care Provider] - 3-5 Days if not improving (Waiting till after your Covid PCR test returns and if negative, and you are still having symptoms, follow-up.) Disposition Disposition: Home, Self Care
[2021-07-22 01:37] LABS: Absolute Lymphocyte Count 5.09 X10^3/uL (0.83-4.51); Absolute Neutrophil Count 4.5 X10^3/uL (2.0-7.7); Basophil# 0.05 X10^3/uL; Basophil% 0.5 % (0-1); Eosinophil# 0.45 X10^3/uL; Eosinophils% 4.1 % (0-5); Hematocrit 44.2 % (37-47); Hemoglobin 14.1 g/dL (12.0-15.0); Lymphocyte # 5.09 X10^3/ul (0.83-4.51); Lymphocyte % 46.4 % (19-41); Mean Corp Hgb Conc 31.9 g/dL (32-36); Mean Corpuscular Hgb 26.2 pg (27.0-32.0); Mean Corpuscular Volume 82.2 fL (81-99); Mean Platelet Vol. 9.9 fl (6.2-12.0); Monocyte# 0.84 X10^3/uL; Monocyte% 7.7 % (0-10); NRBC Flagged by Analyzer 0 % (0-5); Neutrophil # 4.48 X10^3/uL (2.7-7.7); Neutrophil % 40.7 % (47-70); POSITIVE DIFFERENTIAL YES; Platelet Count 356 K/mm3 (150-450); RBC Distribution Width CV 14.1 % (11.6-14.6); RBC Distribution Width SD 41.4 fl (35.1-43.9); Red Blood Count 5.38 M/mm3 (4.2-5.4)
[2021-07-22 01:46] VITALS: BP 135/74; PULSE 59; RESP 21; O2SAT 98
[2021-07-22 01:51] LABS: Differential Indicated SCAN CRITERIA MET
[2021-07-22 01:59] LABS: D-Dimer Quantitative (DVT/PE) 0.53 FEU/ug/m (0.27-0.49)
--- NOTE | 2021-07-22 01:59 | ED.RN ---
ddimer 0.[address] mccracken notified
[2021-07-22 02:00] VITALS: BP 151/75; PULSE 62; RESP 20; O2SAT 98
[2021-07-22 02:00] LABS: ALB/GLOB Ratio 0.9 RATIO (0.9-2.4); AST(SGOT) 21 U/L (15-37); Alanine Aminotransfer ALT/SGPT 40 U/L (13-56); Albumin, Serum 3.8 g/dL (3.2-5.0); Alkaline Phosphatase 68 U/L (45-117); Anion Gap 6 (5-15); BUN 17 mg/dL (7-18); Calcium,Total 9.5 mg/dL (8.5-10.1); Chloride 103 mmol/L (98-107); Creatinine, Serum 0.85 mg/dL (0.55-1.02); EST Glomerular Filtration Rate 71 mL/min (>60); Est Glom Filt Rate - Afr Amer 86 mL/min (>60); Estimated Creatinine Clearance 50.46 ml/min; Globulin 4.3 g/dL (2.2-4.2); Glucose 120 mg/dL (74-106); Potassium 3.7 mmol/L (3.5-5.1); Protein, Total 8.1 g/dL (6.4-8.2); Sodium Level 139 mmol/L (136-145); Troponin-I HS 5 pg/mL (3.0-54.0)
[2021-07-22 02:01] LABS: Lactic Acid 0.9 mmol/L (0.4-1.9)
[2021-07-22 02:35] LABS: Differential Comment SCANNED
[2021-07-22 03:02] VITALS: BP 152/73; PULSE 81; RESP 18; O2SAT 99
== END 2021-07-22 03:03 | disposition home or self-care (01) ==
PROVIDERS: Emergency Provider Emergency Medicine; PCP Internal Medicine
DX: R07.9 Chest pain, unspecified (principal); J06.9 Acute upper respiratory infection, unspecified; I10 Essential (primary) hypertension
CPT/HCPCS: 71045; 80053; 83605; 84484; 85025; 85379; 87426; 87635; 93005; 99285; U0005; A4216; U0003

== ENCOUNTER 2022-11-20 17:01 | Emergency (ER) | payer MEDICARE, MEDICAID, SELFPAY ==
[2022-11-20 17:02] VITALS: BP 144/82; PULSE 91; RESP 14; TEMP 36.2; O2SAT 98; BMI 38.1
--- NOTE | 2022-11-20 18:05 | EKG12_ITS ---
Test Reason : DYSRHYTHMIA Blood Pressure : / mmHG Vent. Rate : 073 BPM Atrial Rate : 073 BPM P-R Int : 154 ms QRS Dur : 072 ms QT Int : 348 ms P-R-T Axes : -11 054 -41 degrees QTc Int : 383 ms Normal sinus rhythm Nonspecific T wave abnormality Abnormal ECG Confirmed by JANNETTE TAVERAS, NOELLE ([id number]), industrial editor EDIN SONG ([id number]) on 11/22/2022 11:32:08 AM Referred By: SARAHI Confirmed By:NOELLE BHATIA MD
--- NOTE | 2022-11-20 18:21 | EDS_ITS ---
HPI History of Present Illness Chief Complaint: Weakness Narrative Narrative: 67-year-old female presenting with lightheadedness. She states that this started yesterday. She had 2 episodes yesterday where she felt like she was going to faint. She sat down both times and did not lose consciousness. She did not have any chest pain with these episodes. She did not feel short of breath. She states she was not sure if she her sugar was low but she did eat very well to make sure that her sugar was up after this. Patient states that today she has not had those near syncopal episodes but still feels a little bit lightheaded. She again states she ate very well today and went for a walk with her friend and did not have any trouble during her walk. She has not had a fever. She does not have cough cold congestion symptoms. No nausea or vomiting. No urinary complaints. [facility] Medical History Hypertension Home Medications hydrochlorothiazide 12.5 mg capsule 12.5 mg PO DAILY #30 caps 09/10/20 [Rx Last Taken Unknown] omeprazole 40 mg capsule,delayed release 40 mg PO DAILY 07/22/21 [History Last Taken Unknown] Allergy/AdvReac Type Severity Reaction Status Date / Time amlodipine AdvReac Swelling Verified 11/20/22 17:02 trazodone AdvReac Itching Verified 11/20/22 17:02 Social History Smoking Status: Never smoker ROS [facility] ED Constitutional Constitutional ED: Denies chills or fever(s) Eyes Eyes: Denies change in vision or diplopia ENT ENT ED: Denies rhinorrhea or sore throat Cardiovascular Cardiovascular: Reports other Details: Near syncope ; Denies chest pain or palpitations Respiratory/Chest Respiratory/Chest: Denies cough or dyspnea Gastrointestinal Gastrointestinal: Denies abdominal pain or constipation Genitourinary Genitourinary ED: Denies dysuria or hematuria Musculoskeletal Musculoskeletal: Denies arthralgias or back pain Integumentary Denies abscess Neurologic Neurologic: Denies headache(s) or paresthesias Psychiatric Psychiatric: Denies anxiety or depression Endocrine Endocrinology: Denies cold intolerance EXAM Physical Exam Const Vital Signs: 11/20/22 17:02 11/20/22 17:45 11/20/22 18:38 Temperature 97.1 F L Temperature Source Temporal Pulse Rate 91 Pulse Rate [Lying] 82 Pulse Rate [Sitting (for 1 minute prior to obtaining)] 91 Pulse Rate [Standing (for 1 minute prior to obtaining)] 98 Respiratory Rate 14 Respiratory Effort Normal Non-Labored Respiratory Pattern Normal Blood Pressure 144/82 H Blood Pressure [Lying] 128/64 H Blood Pressure [Sitting (for 1 minute prior to obtaining)] 144/75 H Blood Pressure [Standing (for 1 minute prior to obtaining)] 136/89 H Blood Pressure Mean 102 Blood Pressure Mean [Lying] 85 Blood Pressure Mean [Sitting (for 1 minute prior to obtaining)] 98 Blood Pressure Mean [Standing (for 1 minute prior to obtaining)] 104 Pulse Ox 98 Oxygen Delivery Method Room Air 11/20/22 19:01 11/20/22 19:41 11/20/22 20:17 Temperature Temperature Source Pulse Rate 79 70 77 Pulse Rate [Lying] Pulse Rate [Sitting (for 1 minute prior to obtaining)] Pulse Rate [Standing (for 1 minute prior to obtaining)] Respiratory Rate 28 H 15 15 Respiratory Effort Respiratory Pattern Blood Pressure 143/78 H 139/80 H 141/85 H Blood Pressure [Lying] Blood Pressure [Sitting (for 1 minute prior to obtaining)] Blood Pressure [Standing (for 1 minute prior to obtaining)] Blood Pressure Mean 99 99 Blood Pressure Mean [Lying] Blood Pressure Mean [Sitting (for 1 minute prior to obtaining)] Blood Pressure Mean [Standing (for 1 minute prior to obtaining)] Pulse Ox 98 99 100 Oxygen Delivery Method Room Air Room Air Positive well nourished General Appearance ED: NAD; Negative for pallor HEENT Reports moist mucous membranes Eyes PERRL and EOMs intact bilaterally General Eye ED: Negative for pale conjunctiva or scleral icterus Chest Wall inspection of chest normal and palpation of chest normal Resp normal respiratory effort and clear to auscultation bilaterally Cardio regular rate and regular rhythm GI normal to inspection, nondistended, normoactive bowel sounds Neuro oriented x3 and CN's II-XII intact bilaterally Sensorium / Orientation: alert Motor Exam: strength 5/5 throughout Psych mental status grossly normal Skin no rashes or lesions noted General Skin Exam: Negative for jaundice or pallor MDM MDM MDM Narrative Medical decision making narrative: Patient presenting with lightheadedness. This apparently has improved today and she has not had any near syncopal episodes. Differential includes but not limited to includes cardiac source, dehydration, electrolyte abnormalities, atypical vertigo presentation, anemia, hyperglycemia, hypoglycemia. Will obtain EKG and a troponin. CBC to for hemoglobin, platelets, differential. BMP to assess renal function, electrolytes, glucose, anion gap. Orthostatics will be added as well. EKG interpreted by myself shows normal sinus rhythm with a ventricular of 73 bpm. T wave inversions noted V4 through V6 as well as leads I and aVL. Comparison made to previous EKG 29 January 2021 without significant interval change. CBC and BMP are unremarkable. High sensor troponin is 5. Orthostatic vital signs are normal. Chest x-ray my interpretation shows no acute cardiopulmonary process. Radiologist services and agrees. Patient has essentially normal work-up. I feel she stable for discharge home. Return precautions were discussed. Impression: 1. Lightheadedness 2. Near syncope Lab Data Labs: Laboratory Results - last 24 hr 11/20/22 11/20/22 18:16 18:16 WBC 9.6 RBC 5.34 Hgb 13.9 Hct 44.3 MCV 83.0 MCH 26.0 L MCHC 31.4 L RDW Std Deviation 42.0 RDW Coeff of Julia 13.9 Plt Count 334 MPV 10.5 Immature Gran % (Auto) 0.300 Neut % (Auto) 51.4 Lymph % (Auto) 34.4 [place] % (Auto) 9.4 Eos % (Auto) 4.0 Baso % (Auto) 0.5 Absolute Neuts (auto) 4.9 Absolute Lymphs (auto) 3.31 Nucleated RBC % 0 Sodium 142 Potassium 3.8 Chloride 109 H Carbon Dioxide 28.0 Anion Gap 5 BUN 9 Creatinine 0.82 Estim Creat Clear Calc 51.61 Est GFR (MDRD) Af Amer 89 Est GFR (MDRD) Non-Af 74 BUN/Creatinine Ratio 10.9 Glucose 93 Calcium 9.0 Troponin I High Sens 5 Radiography Diagnostic Testing: Clinical Impression(s) from Imaging Studies Chest X-Ray 11/20/22 18:32 IMPRESSION: Degenerative changes, as described above. No demonstrated acute cardiopulmonary process. No major interval change. Electronically Signed: Sky Monahan DO at 18:49 EST Reading Location ID and State: [address] [place] [address] Tel [phone], Service support , Discharge Plan Triage Chief Complaint: Weakness ED Provider: Dipak Roque Dx/Rx/DC Orders Instructions: ED Near-Fainting, Uncertain Cause, ED Weakness (Uncertain Cause) Prescriptions: No Action hydrochlorothiazide 12.5 MG capsule 12.5 mg PO DAILY Qty: 30 0RF omeprazole 40 mg Capsule,Delayed Release(Dr/Ec) 40 mg PO DAILY Primary Care Provider: Tatiana Cooper Referrals: Tatiana Cooper MD [Primary Care Provider] - Disposition Disposition: Home, Self Care Discharge Date/Time: 11/20/22 20:22
[2022-11-20 18:24] LABS: Absolute Lymphocyte Count 3.31 X10^3/uL (0.83-4.51); Absolute Neutrophil Count 4.9 X10^3/uL (2.0-7.7); Basophil# 0.05 X10^3/uL; Basophil% 0.5 % (0-1); Eosinophil# 0.38 X10^3/uL; Hematocrit 44.3 % (37-47); Hemoglobin 13.9 g/dL (12.0-15.0); Lymphocyte # 3.31 X10^3/ul (0.83-4.51); Lymphocyte % 34.4 % (19-41); Mean Corp Hgb Conc 31.4 g/dL (32-36); Mean Platelet Vol. 10.5 fl (6.2-12.0); Monocyte% 9.4 % (0-10); NRBC Flagged by Analyzer 0 % (0-5); Neutrophil # 4.94 X10^3/uL (2.7-7.7); Neutrophil % 51.4 % (47-70); Platelet Count 334 K/mm3 (150-450); RBC Distribution Width CV 13.9 % (11.6-14.6); Red Blood Count 5.34 M/mm3 (4.2-5.4); White Blood Count 9.6 K/mm3 (4.4-11.0)
--- NOTE | 2022-11-20 18:32 | RAD_ITS ---
STUDY: X-RAY CHEST REASON FOR EXAM: Female, 67 years old. Near syncope. TECHNIQUE: Single AP portable view of the chest. COMPARISON: July 22, 2021. FINDINGS: The lungs are clear and expanded. There is no demonstrated pleural abnormality. Normal size heart. Normal mediastinum and khushboo. Normal visualized pulmonary arteries. Normal visualized aortic arch and descending thoracic aorta. There are diffuse degenerative changes of the visualized thoracic spine. Normal visualized ribs, clavicles, and shoulders. There is no demonstrated abnormality of the visualized soft tissue structures of the upper abdomen. RAD/Chest 1 View (Portable) IMPRESSION: Degenerative changes, as described above. No demonstrated acute cardiopulmonary process. No major interval change. Electronically Signed: Sky Monahan DO at 18:49 EST ,
[2022-11-20 18:38] VITALS: BP 128/64; BP 136/89; BP 144/75; PULSE 82; PULSE 91; PULSE 98
[2022-11-20 18:42] LABS: Anion Gap 5 (5-15); BUN 9 mg/dL (7-18); BUN/Creat Ratio 10.9 RATIO (10-20); Chloride 109 mmol/L (98-107); Creatinine, Serum 0.82 mg/dL (0.55-1.02); EST Glomerular Filtration Rate 74 mL/min (>60); Est Glom Filt Rate - Afr Amer 89 mL/min (>60); Estimated Creatinine Clearance 51.61 ml/min; Glucose 93 mg/dL (74-106); Potassium 3.8 mmol/L (3.5-5.1); Sodium Level 142 mmol/L (136-145); Troponin-I HS 5 pg/mL (3.0-54.0)
[2022-11-20 19:01] VITALS: BP 143/78; PULSE 79; RESP 28; O2SAT 98
[2022-11-20 19:41] VITALS: BP 139/80; PULSE 70; RESP 15; O2SAT 99
[2022-11-20 20:17] VITALS: BP 141/85; PULSE 77; RESP 15; O2SAT 100
== END 2022-11-20 20:22 | disposition home or self-care (01) ==
PROVIDERS: Emergency Provider Student in an Organized Health Care Education/Training Program; PCP Internal Medicine; Visit Provider Student in an Organized Health Care Education/Training Program
DX: R42 Dizziness and giddiness (principal); R55 Syncope and collapse; R53.1 Weakness; I10 Essential (primary) hypertension
CPT/HCPCS: 71045; 80048; 84484; 85025; 93005; 99284; A4216

== ENCOUNTER 2023-01-08 20:41 | Emergency (ER) | payer MEDICARE, MEDICAID, SELFPAY ==
[2023-01-08 20:42] VITALS: BP 145/84; PULSE 84; RESP 16; TEMP 36.4; O2SAT 100; BMI 37.8
--- NOTE | 2023-01-08 22:37 | EX.ED.VIS.UR ---
HPI HPI - URI History of Present Illness Chief Complaint: Ear Problem Informant: patient Onset/Context/Timing Onset: Days (4) Context: Sudden Onset Timing: Continuous Quality: Pressure Location: Left ear Worsened by: - (Nothing) Relieved by: - (Nothing) Associated Symptoms Associated Symptoms: Positive for Headache; Negative for Nasal Congestion, Sinus Pressure, Myalgias, Nausea, Vomiting, Diarrhea, Shortness of Breath, Chest Pain, Nonproductive cough, Hemoptysis or Productive Cough Narrative Narrative: Patient presents with decreased hearing from her left ear that began 4 days ago. Patient states she felt a pop in her left ear and has had decreased hearing ever since. Patient states it feels like a pressure in her left ear. Patient states she has developed a headache because of this. Patient denies any fevers or chills. Patient denies any difficulty breathing or difficulty swallowing. Patient denies any shortness of breath or cough. ROS ROS ED Constitutional Constitutional ED: Denies chills or fever(s) Eyes Eyes: Denies blurry vision or change in vision ENT ENT ED: Reports ear pain left; Denies rhinorrhea or sore throat Cardiovascular Cardiovascular: Denies chest pain or palpitations Respiratory/Chest Respiratory/Chest: Denies cough or dyspnea Gastrointestinal Gastrointestinal: Denies nausea or vomiting Genitourinary Genitourinary ED: Denies dysuria or hematuria Musculoskeletal Musculoskeletal: Denies back pain or neck pain Integumentary Denies abscess or rash Neurologic Neurologic: Reports headache(s); Denies weakness Allergic/Immunologic Allergic/Immunologic ED: Denies mouth swelling or urticaria [facility] Medical History (Updated 01/08/23 @ 22:[address] Ayush Roth, ) Diabetes mellitus Hypertension Home Medications hydrochlorothiazide 12.5 mg capsule 12.5 mg PO DAILY #30 caps 09/10/20 [Rx Last Taken Unknown] omeprazole 40 mg capsule,delayed release 40 mg PO DAILY 07/22/21 [History Last Taken Unknown] amoxicillin 500 mg tablet 500 mg PO TID #30 tabs 01/08/23 [Rx Last Taken Unknown] fluticasone propionate 50 mcg/actuation nasal spray,suspension (Flonase Allergy Relief) 1 spray intranasal DAILY #16 grams 01/08/23 [Rx Last Taken Unknown] Allergy/AdvReac Type Severity Reaction Status Date / Time amlodipine AdvReac Swelling Verified 01/08/23 20:43 trazodone AdvReac Itching Verified 01/08/23 20:43 Surgical History (Updated 01/08/23 @ 22:[address] Ayush Roth DO) Hx of tonsillectomy Social History Smoking Status: Never smoker EXAM Physical Exam Const Vital Signs: 01/08/23 20:42 Temperature 97.6 F L Temperature Source Temporal Pulse Rate 84 Respiratory Rate 16 Blood Pressure 145/84 H Blood Pressure Mean 104 Pulse Ox 100 Oxygen Delivery Method Room Air Positive well nourished, well developed and obese General Appearance ED: well developed and NAD Nutritional Appearance: obese HEENT Reports moist mucous membranes HEENT Narrative: There is an effusion behind the left tympanic membrane. There is some mild erythema of the left tympanic membrane. There is also mild effusion behind the right tympanic membrane. There is no erythema of the right tympanic membrane. Nasal mucosa was mildly congested. There is some mild postnasal drainage in the oropharynx. normocephalic and atraumatic Throat: posterior oropharynx abnormal Positive for cobblestoning Eyes PERRL and EOMs intact bilaterally Neck supple, no meningeal signs and no JVD Neuro oriented x3, CN's II-XII intact bilaterally and no sensory deficits noted Sensorium / Orientation: alert Motor Exam: strength 5/5 throughout MDM MDM MDM Narrative Medical decision making narrative: Patient was advised that this is most likely a serous otitis media. Patient was given a dose of amoxicillin here. Patient was given a prescription for amoxicillin. Patient was also given a prescription for Flonase nasal spray. Patient was instructed to follow-up with her primary care physician in 5 to 7 days. Patient understood and was agreeable with the plan. All questions were answered. Discharge Plan Triage Chief Complaint: Ear Problem ED Provider: Ayush Roth Dx/Rx/DC Orders Clinical Impression: Acute serous otitis media of left ear, Obesity (BMI 30-39.9), Hypertension Instructions: ED Otitis Media Antibiotic ... Prescriptions: New amoxicillin 500 mg tablet 500 mg PO TID Qty: 30 0RF fluticasone propionate [Flonase Allergy Relief] 50 mcg/actuation spray,suspension 1 spray intranasal DAILY Qty: 16 0RF Rx Instructions: administer into each nostril No Action hydrochlorothiazide 12.5 MG capsule 12.5 mg PO DAILY Qty: 30 0RF omeprazole 40 mg Capsule,Delayed Release(Dr/Ec) 40 mg PO DAILY Primary Care Provider: Tatiana Cooper Referrals: Tatiana Cooper MD [Primary Care Provider] - 5-7 Days Disposition Disposition: Home, Self Care
[2023-01-08] MEDS: AMOXICILLIN 500 MG CAPSULE PO (22:51)
[2023-01-08 22:55] VITALS: BP 145/84; PULSE 84; RESP 15; O2SAT 100
== END 2023-01-08 22:56 | disposition home or self-care (01) ==
PROVIDERS: Emergency Provider Emergency Medicine; PCP Internal Medicine; Visit Provider Emergency Medicine
DX: H65.02 Acute serous otitis media, left ear (principal); I10 Essential (primary) hypertension; E66.9 Obesity, unspecified
CPT/HCPCS: 99283

== ENCOUNTER 2024-06-08 22:31 | Emergency (ER) | payer MEDICARE, SELFPAY ==
[2024-06-08 22:32] VITALS: BP 166/69; PULSE 67; RESP 16; TEMP 36.7; O2SAT 98; BMI 35.5
[2024-06-08 22:50] VITALS: BP 128/71
--- NOTE | 2024-06-08 23:34 | EDS_ITS ---
HPI History of Present Illness Chief Complaint: Hypertension Informant: patient Narrative Narrative: Patient is a 69-year-old female with past medical history of hypertension and diabetes. She states that today she went out to eat at a restaurant and ate food that was high in salt content and then went to a other fast food restaurant and had pieces of fried chicken. She states that after this when she returned home she decided to check her blood pressure and it was elevated with a systolic of approximately 170. She states after seeing the high number she began to feel lightheaded and she was concerned this was secondary to her elevated BP. She states she took a dose of her home medication and then presented to the ER for evaluation. Patient does state that upon arrival to the ER she does feel better at this time. Other than the fast food/salt exposure this evening she denies any excessive stimulant use or illicit drug use [facility] Medical History (Updated 06/09/24 @ 03:[address] Julián Montenegro, ) Diabetes mellitus Hypertension Home Medications ?Medication ?Instructions ?Recorded ?Last Taken ?Type omeprazole 40 mg capsule,delayed 40 mg PO DAILY 07/22/21 Unknown History release amoxicillin 500 mg tablet 500 mg PO TID #30 tabs 01/08/23 Unknown Rx fluticasone propionate 50 1 spray intranasal DAILY #16 grams 01/08/23 Unknown Rx mcg/actuation nasal spray,suspension (Flonase Allergy Relief) hydrochlorothiazide 25 mg tablet 25 mg PO DAILY 06/08/24 Unknown History Allergy/AdvReac Type Severity Reaction Status Date / Time amlodipine AdvReac Swelling Verified 06/08/24 22:33 trazodone AdvReac Itching Verified 06/08/24 22:33 Surgical History Hx of tonsillectomy Social History Smoking Status: Never smoker ROS ROS ED Constitutional Constitutional ED: Denies chills or fever(s) Eyes Eyes: Denies blurry vision or change in vision ENT ENT ED: Denies sore throat Cardiovascular Cardiovascular: Reports other Details: Positive dizziness/lightheadedness ; Denies chest pain, palpitations or racing heartbeat Respiratory/Chest Respiratory/Chest: Denies cough or dyspnea Gastrointestinal Gastrointestinal: Denies abdominal pain, diarrhea, nausea or vomiting Genitourinary Genitourinary ED: Denies dysuria Musculoskeletal Musculoskeletal: Denies myalgias Integumentary Denies rash Neurologic Neurologic: Denies headache(s) Hematologic/Lymphatic Hematologic/Lymphatic: Denies easy bleeding or easy bruising EXAM Physical Exam Const Vital Signs: 06/08/24 22:32 06/08/24 22:50 06/08/24 22:50 Temperature 98.1 F Temperature Source Temporal Pulse Rate 67 Respiratory Rate 16 Respiratory Effort Normal Respiratory Pattern Normal Blood Pressure 166/69 H 128/71 H Blood Pressure Mean 101 90 Pulse Ox 98 Oxygen Delivery Method Room Air 06/08/24 23:48 Temperature 98 F Temperature Source Pulse Rate 69 Respiratory Rate 17 Respiratory Effort Respiratory Pattern Blood Pressure 139/70 H Blood Pressure Mean 93 Pulse Ox 99 Oxygen Delivery Method Positive well nourished and well developed General Appearance ED: well developed; Negative for pallor HEENT HEENT Narrative: Normocephalic atraumatic Eyes PERRL and EOMs intact bilaterally General Eye ED: Negative for pale conjunctiva or scleral icterus Neck supple and no JVD Resp normal respiratory effort and clear to auscultation bilaterally Cardio regular rate and regular rhythm Rate: other Other Details: Heart is regular rate and rhythm without murmurs rubs or gallop Radial and carotid pulses are equal and symmetric GI normal to inspection, nondistended, normoactive bowel sounds, non-tender, non- distended and no masses GI Narrative: No voluntary guarding or rigidity or pulsatile mass Auscultation: normoactive bowel sounds Palpation: soft Extremity normal to inspection Extremity Narrative: No asymmetric edema no pitting edema negative Homans' sign bilaterally Neuro oriented x3, CN's II-XII intact bilaterally and no sensory deficits noted Neuro Narrative: Cranial nerves II through XII are grossly intact without focal neurologic deficit No pronator drift no dysmetria no truncal ataxia NIH stroke scale score of 0 GCS of 15 No nystagmus noted Sensorium / Orientation: alert Motor Exam: strength 5/5 throughout Psych mental status grossly normal Skin no rashes or lesions noted General Skin Exam: Negative for jaundice or pallor MDM MDM MDM Narrative Medical decision making narrative: Patient arrived to the ER hypertensive similar to what she reported at home but otherwise with stable vitals. She denied any headache or change in vision chest pain abdominal pain or shortness of breath. She states that she did have food high in salt content prior to her blood pressure elevating but she also denied any type of excessive stimulant use or illicit drug use. I discussed with patient performing a workup for endorgan damage including EKG and basic blood work looking at troponins and kidney function as well as electrolytes and even a potential head CT based on her sensation of lightheadedness/dizziness. However without providing any type of medication in the ER her blood pressure has improved between 15 and 25% which is the goal reduction for ER. Also her symptoms have spontaneously resolved. Therefore at this time with resolution of her hypertension and improvement of symptoms patient would prefer to go home and continue her home hypertensive medication and follow-up as an outpatient versus undergo further workup in the ER. With no focal findings in the emergency department and improvement of her vitals I do not feel there is any true necessity in performing further testing and she will be discharged home History & Record Review Discussion w/independent historian: Patient Discharge Plan Triage Chief Complaint: Hypertension ED Provider: Julián Montenegro Dx/Rx/DC Orders Clinical Impression: Accelerated hypertension, Non-insulin dependent diabetes mellitus Instructions: Blood Pressure Check Steps, ED Hypertension, Established Prescriptions: No Action omeprazole 40 mg Capsule,Delayed Release(Dr/Ec) 40 mg PO DAILY amoxicillin 500 mg tablet 500 mg PO TID Qty: 30 0RF fluticasone propionate [Flonase Allergy Relief] 50 mcg/actuation spray,suspension 1 spray intranasal DAILY Qty: 16 0RF Rx Instructions: administer into each nostril hydrochlorothiazide 25 mg tablet 25 mg PO DAILY Stand Alone Forms: ED Work / School Excuse Primary Care Provider: Tatiana Cooper Referrals: Tatiana Cooper MD [Primary Care Provider] - Activity Restrictions/Additional Instructions: Please continue your home blood pressure medications as directed by your doctor and return to the ER should you have any further concerns Print Language: Paraguayan Disposition Disposition: Home, Self Care Discharge Date/Time: 06/09/24 00:01
[2024-06-08 23:48] VITALS: BP 139/70; PULSE 69; RESP 17; TEMP 36.6; O2SAT 99
== END 2024-06-09 00:01 | disposition home or self-care (01) ==
LOC: ED 23:45
PROVIDERS: Emergency Provider Emergency Medicine; PCP Internal Medicine; Visit Provider Emergency Medicine
DX: I10 Essential (primary) hypertension (principal); E11.9 Type 2 diabetes mellitus without complications; Z79.899 Other long term (current) drug therapy
CPT/HCPCS: 99282